=== PATIENT | male | born 1945 | race Caucasian/White ===

== ENCOUNTER 2018-10-12 15:50 | Inpatient (IN) | payer MEDICARE ==
[2018-10-12] MEDS ORDERED: fentaNYL (PF) 50 MCG/ML 2 ML AMP IV STA ×2 (16:23→16:50)
--- NOTE | 2018-10-12 16:28 | ED ---
Fall HPI - General Chief Complaint: Fall Stated Complaint: Fall Time Seen by Provider: 10/12/18 16:00 Source: patient, family, EMS, RN notes reviewed Mode of arrival: EMS - History of Present Illness Initial Comments: This is a 72-year-old male history of thyroid disease and arthritis and diabetes who apparently was leaning on a table just prior to admission and his garage when he gave out he fell landing on his right hip. He complains of pain to the right anterior hip and groin area especially tries to move his legs states is 10/10 in severity when he tries moving this almost 10 at rest. He does have a fentanyl patch 25 g he wears initially did declined pain medication. He was placed in a cervical collar and brought in by EMS. He denies any head neck or back pain. He states the pain in his right groin is sharp and achy. No loss of function to his upper or lower extremities reported. No other injuries reported. MD Complaint: fall - Related Data Home Medications Medication Instructions Recorded Confirmed Aspirin 81 mg PO DAILY 05/31/15 10/12/18 Enalapril [Vasotec] 20 mg PO BID 05/31/15 10/12/18 Ergocalciferol [Vitamin D2 50,000 unit PO SA 05/31/15 10/12/18 (DRISDOL)] Fluticasone Nasal [place] [Flonase 2 spray EA NOSTRIL 05/31/15 10/12/18 Nasal [place]] Levothyroxine Sodium [Synthroid] 137 mcg PO QAM 05/31/15 10/12/18 Magnesium 500 mg PO DAILY 05/31/15 10/12/18 Niacin 500 mg PO DAILY 05/31/15 10/12/18 Omeprazole [PriLOSEC] 20 mg PO BID 05/31/15 10/12/18 Travoprost [Travatan Z 0.004%] 1 drop RIGHT EYE 05/31/15 10/12/18 metFORMIN HCL 1,000 mg PO W/SUPPER 05/31/15 10/12/18 metFORMIN HCL 500 mg PO QAM 05/31/15 10/12/18 Loratadine [Claritin] 10 mg PO DAILY 06/07/15 10/12/18 Acetaminophen [Tylenol Extra 1,000 mg PO 10/12/18 10/12/18 Strength] Albuterol Inhaler [Ventolin Hfa 2 puff INHALATION RT-Q4H PRN 10/12/18 10/12/18 Inhaler] Diclofenac Sodium [Diclofenac 100 mg PO DAILY 10/12/18 10/12/18 Sodium ER] Insulin Aspart [NovoLOG Flexpen] 0 units SQ QID 10/12/18 10/12/18 Insulin NPH Human Isophane 40 unit SQ HS 10/12/18 10/12/18 [NovoLIN N] Sertraline [Zoloft] 100 mg PO DAILY 10/12/18 10/12/18 fentaNYL 25MCG/HR PATCH [Duragesic 25 mcg TRANSDERM Q72H 10/12/18 10/12/18 25MCG/HR] Allergies Allergy/AdvReac Type Severity Reaction Status Date / Time [id number]-Pqn Reductase Allergy Abdominal Verified 10/12/18 17:08 Inhibitor Pain Sulfa (Sulfonamide Allergy Unknown Verified 10/12/18 17:08 Antibiotics) Review of Systems ROS Statement: Those systems with pertinent positive or pertinent negative responses have been documented in the HPI. ROS Other: All systems not noted in ROS Statement are negative. Past Medical History Past Medical History: Diabetes Mellitus, GERD/Reflux, Hyperlipidemia, Hypertension, Thyroid Disorder Additional Past Medical History / Comment(s): Cholelithiasis; Kidney , GLAUCOMA RT EYE, START OF P[place]INSONS,DIFFUSE IDIOPATHIC SKELETAL PANCREATITIS,HYPERTOSIS( DISH), PT STATED APPETITE DOWN SINCE JANUARY HAS LOST 30 POUNDS. History of Any Multi-Drug Resistant Organisms: None Reported Additional Past Surgical History / Comment(s): 9-101-5 LAP CHOLEY Cataract surgery Past Anesthesia/Blood Transfusion Reactions: No Reported Reaction Additional Past Anesthesia/Blood Transfusion Reaction / Comment(s): HAS NEVER HAD GENERAL ANESTHESIA. Past Psychological History: No Psychological Hx Reported Smoking Status: Former smoker - Past Family History Father Family Medical History: COPD Additional Family Medical History / Comment(s): EMPHYSEMA Mother Family Medical History: Rheumatoid Arthritis (RA) General Exam - General Exam Comments Initial Comments: This is a well-developed well-nourished awake alert oriented 3 male demonstrates a Jason Coma Scale of 15 Limitations: no limitations General appearance: alert, anxious Head exam: Present: atraumatic, normocephalic, normal inspection Eye exam: Present: normal appearance, PERRL, EOMI. Absent: scleral icterus, conjunctival injection, periorbital swelling ENT exam: Present: normal exam, mucous membranes moist Neck exam: Present: normal inspection, full ROM (Cervical collar was in place. Did remove after clinical examination demonstrating no tenderness palpation no step-off or crepitation). Absent: tenderness, meningismus, lymphadenopathy Respiratory exam: Present: normal lung sounds bilaterally. Absent: respiratory distress, wheezes, rales, rhonchi, stridor Cardiovascular Exam: Present: regular rate, normal rhythm, normal heart sounds. Absent: systolic murmur, diastolic murmur, rubs, gallop, clicks GI/Abdominal exam: Present: soft, normal bowel sounds. Absent: distended, tenderness, guarding, rebound, rigid exam: Present: normal inspection, circumcision Extremities exam: Present: normal inspection, tenderness (Tenderness palpation over the anterior right pelvis and hip region. No step-off or crepitation. No discoloration. No shortening or rotation lower extremities.), normal capillary refill. Absent: full ROM, pedal edema, joint swelling, calf tenderness Back exam: Present: normal inspection Neurological exam: Present: alert, oriented X3, CN II-XII intact Psychiatric exam: Present: normal affect, normal mood Skin exam: Present: warm, dry, intact, normal color. Absent: rash Course Vital Signs 10/12/18 15:52 Temperature 97.5 F L Pulse Rate 64 Respiratory 18 Rate Blood Pressure 185/89 O2 Sat by Pulse 99 Oximetry - Reevaluation(s) Reevaluation #1: 10/12/18 18:34 Patient does have DISH. Medical Decision Making - Medical Decision Making I did discuss the case with the family members and patient on several occasions they've requested orthopedic Associates. I did discuss the case with Dr. Reyes who did refer the case to Dr. Lowery. Dr. Lowery full be the admitting physician. - Radiology Data Radiology results: report reviewed (I did review the imaging and report is evidence of a surgical neck fracture.), image reviewed Disposition Clinical Impression: Fall, Hip fracture, right Disposition: ADMITTED IP TO THIS [facility] Condition: Stable Referrals: Lloyd Romano MD [Primary Care Provider] - 1-2 days
--- NOTE | 2018-10-12 17:01 | XR ---
EXAMINATION TYPE: XR Hip RT and AP Pelvis DATE OF EXAM: 10/12/2018 COMPARISON: NONE HISTORY: Hip pain TECHNIQUE: A single AP view of the pelvis is obtained. Two views of the right hip are obtained. FINDINGS: There is slightly impacted fracture of the right femoral neck. There is no dislocation. The pelvic ring is intact. There is moderate osteoarthritis in the left hip joint. Sacroiliac joints are intact. IMPRESSION: Acute or subacute right femoral neck fracture.
[2018-10-12] MEDS ORDERED: NALOXONE 0.4 MG/ML 1 ML VIAL IV PRN (18:35)
[2018-10-12] MEDS ORDERED: ONDANSETRON 4 MG/2 ML VIAL IVP PRN (18:35)
[2018-10-12] MEDS: HYDROmorphone 1 MG/ML 1 ML SYRINGE IVP PRN ×2 (18:49→21:46)
[2018-10-12] MEDS: SODIUM CHLORIDE 0.9% 1,000 ML IV SCH (18:52)
--- NOTE | 2018-10-12 19:13 | XR ---
EXAMINATION TYPE: XR chest 1V DATE OF EXAM: 10/12/2018 COMPARISON: NONE HISTORY: Preop TECHNIQUE: Single frontal view of the chest is obtained. FINDINGS: There is no heart failure nor confluent pneumonic infiltrate. Costophrenic angles are juan m r. Bony thorax is intact. IMPRESSION: No active cardiopulmonary disease. Normal heart.
[2018-10-12 19:18] LABS: Basophils # (A) 0.1 k/uL (0-0.2); Basophils % (A) 1 %; Eosinophils # (A) 0.2 k/uL (0-0.7); Eosinophils % (A) 2 %; HCT 41.4 % (39.0-53.0); HGB 13.4 gm/dL (13.0-17.5); Lymphocytes # (A) 0.9 k/uL (1.0-4.8); Lymphocytes % (A) 12 %; MCH 28.6 pg (25.0-35.0); MCHC 32.4 g/dL (31.0-37.0); MCV 88.4 fL (80.0-100.0); Mean Platelet Volume 6.6; Monocytes # (A) 0.4 k/uL (0-1.0); Monocytes % (A) 5 %; Neutrophils # (A) 6.1 k/uL (1.3-7.7); Neutrophils % (A) 79 %; Platelet Count 182 k/uL (150-450); RBC 4.68 m/uL (4.30-5.90); RDW 13.4 % (11.5-15.5); WBC 7.7 k/uL (3.8-10.6)
[2018-10-12 19:19] LABS: ALT 27 U/L (21-72); AST 26 U/L (17-59); Albumin 3.9 g/dL (3.5-5.0); Alkaline Phosphatase 98 U/L (38-126); Anion Gap 7 mmol/L; Blood Urea Nitrogen 22 mg/dL (9-20); Calcium 9.3 mg/dL (8.4-10.2); Carbon Dioxide 22 mmol/L (22-30); Chloride 107 mmol/L (98-107); Glucose 185 mg/dL (74-99); Magnesium 2.1 mg/dL (1.6-2.3); Partial Thromboplastin Time 24.5 sec (22.0-30.0); Potassium 5.1 mmol/L (3.5-5.1); Prothrombin Time 10.9 sec (9.0-12.0); Sodium 136 mmol/L (137-145); Total Bilirubin 0.5 mg/dL (0.2-1.3); Total Protein 6.8 g/dL (6.3-8.2)
[2018-10-12 19:24] LABS: Creatine Kinase 103 U/L (55-170)
[2018-10-12 19:36] LABS: Creatine Kinase MB 1.6 ng/mL (0.0-2.4); Troponin I <0.012 ng/mL (0.000-0.034)
[2018-10-12 20:48] LABS: Appearance,Urine Clear (Clear); Bilirubin,Urine Negative (Negative); Blood,Urine Negative (Negative); Color,Urine Yellow; Glucose,Urine (UA) 2+ (Negative); Ketones,Urine Negative (Negative); Leukocyte Esterase,Urine Negative (Negative); Nitrite,Urine Negative (Negative); Protein,Urine Negative (Negative); Urobilinogen,Urine <2.0 mg/dL (<2.0)
[2018-10-12 20:58] LABS: Glucose,Whole Blood 152 mg/dL (75-99)
[2018-10-12] MEDS: LATANOPROST 0.005% OPHTH DROPS 2.5 ML BTL RIGHT EYE SCH (21:46)
[2018-10-12] MEDS: PANTOPRAZOLE 40 MG TABLET PO SCH (21:46)
[2018-10-12] MEDS: FLUTICASONE 50MCG/SPRAY NASAL 16GM EA NOSTRIL SCH (21:46)
[2018-10-12] MEDS ORDERED: ALBUTEROL NEBULIZED 2.5 MG/3 ML INHALATION PRN (22:36)
--- NOTE | 2018-10-12 23:35 | CONS ---
CONSULTATION DATE OF CONSULTATION: 10/12/2018 REASON FOR CONSULTATION: Medical management requested by Dr. Lowery. CONSULTATIONS: This is a very pleasant 73-year-old patient who follows with Dr. Lloyd Romano. Chronic stable medical conditions include hypothyroid, diabetes, GERD, hyperlipidemia, hypertension, early Parkinson's and DISH. The patient was working in the garage leaning over when he fell over injuring his right hip. The patient now has a fracture. The patient has a fracture of the right femoral neck. The patient denies any prior cardiac history. The patient has a fair exercise tolerance, though walks a bit slowly because of arthritis, can easily do a block. No chest pain or short of breath. The patient a while ago had a negative stress test, but the patient denies any cardiac symptoms. The patient's is at the bedside. REVIEW OF SYSTEMS: CONSTITUTIONAL: None. HEENT: None. RESPIRATORY: None. CARDIOVASCULAR: None. GASTROINTESTINAL: Heartburn. GENITOURINARY: None. MUSCULOSKELETAL: Arthritic pain in the joints and the right hip. DERMATOLOGICAL, HEMATOLOGIC, LYMPHATIC: none. PSYCHIATRY none. NEUROLOGICAL: Some slowness from early Parkinson's. Seen by Dr. Garvin. PAST MEDICAL HISTORY: Diabetes mellitus type 2, GERD, hyperlipidemia, hypertension, hypothyroid, cholelithiasis, glaucoma right eye, early Parkinson's, diffuse idiopathic skeletal hyperostosis. PAST SURGICAL HISTORY: Cholecystectomy, cataract surgery, rotator cuff repair, nose surgery from fracture. SOCIAL HISTORY: . No smoking. No alcohol. 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 FAMILY HISTORY: COPD. HOME MEDICATIONS: 1. Metformin 1000 mg with supper. 2. Travatan Z 0.004% 1 drop to right eye q.h.s. 3. Novolin N 40 units subcu q.h.s. 4. Flonase 2 sprays each nostril q.h.s. 5. Tylenol Extra Strength 1000 mg p.o. q.h.s. 6. Ventolin HFA 2 puffs q.4 p.r.n. 7. Insulin NovoLog q.i.d. 8. Duragesic patch 25 every 72 hours. 9. Vitamin D2 87636 units on Friday. 10.Diclofenac sodium 100 mg p.o. daily. 11.Magnesium 5 mg p.o. daily. 12.Prilosec 20 mg b.i.d. 13.Metformin 500 mg p.o. daily. 14.Zoloft 100 mg p.o. daily. 15.Synthroid 137 mcg daily. 16.Niacin 500 mg p.o. daily. 17.Claritin 10 mg p.o. daily. 18.Vasotec 20 mg b.i.d. 19.Aspirin 81 mg p.o. daily. ALLERGIES: TO STATINS AND SULFA. PHYSICAL EXAMINATION: VITAL SIGNS: Temperature 97.5, pulse 54, respiratory 18, blood pressure 185/89, repeat 160/76, pulse ox 99% on room air. GENERAL APPEARANCE: Average build, lying in bed, awake. EYES: Pupils equal. Conjunctive normal. Wearing glasses. HEENT external appearance of nose and ears normal. Oral cavity normal. NECK: JVD not raised. Mass not palpable. RESPIRATORY: Effort normal. LUNGS: Fair entry. CARDIOVASCULAR: First and second sounds normal. No edema. ABDOMEN: Soft, nontender. Liver and spleen not palpable. LYMPHATICS: No lymph nodes palpable in the neck and axilla. PSYCHIATRY: Alert and oriented x3. Mood and affect normal. NEUROLOGICAL: Pupils equal. Cranial nerves grossly intact. Power and sensation grossly intact. MUSCULOSKELETAL: Limited range of motion of the right hip. Evidence of OA especially in the hands. INVESTIGATIONS: White count 7.7, hemoglobin 13.4, potassium 5.1, BUN 22, creatinine 0.94. Accu-Cheks: Sodium 152. UA showing glucose 2+. EKG tracing personally reviewed by me shows normal sinus rhythm. Chest x-ray film personally reviewed by me shows some cardiomegaly. Questionable. No obvious infiltrates. Report also reviewed as per the radiologist. Right hip x-ray shows a femur fracture. ASSESSMENT: 1. Right femur neck fracture secondary to a mechanical fall. 2. Hypothyroidism. 3. Primary osteoarthritis multiple joints. 4. Diabetes mellitus type 2, chronically on insulin. 5. Gastroesophageal reflux disease. 6. Hyperlipidemia. 7. Essential hypertension. 8. 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 9. Cardiovascular risk assessment: The patient has no cardiac symptoms. Has fair exercise tolerance. This is a relatively low blood loss surgery. Hence, the patient's has mild cardiovascular risk of surgery, to proceed with the same with no contraindications. PLAN: Home medications are resumed. We will hold off patient's Novolin-N and rather use the Levemir, give 20 units to sliding scale. The patient is on subcu heparin for DVT prophylaxis. Other medications are resumed. Care was discussed with the patient and . Questions were answered. Thank you, Dr. Lowery. Copy to Dr. Romano. BARB / MARILYNN: [id number] /
[2018-10-13 00:04] LABS: Glucose,Whole Blood 165 mg/dL (75-99)
[2018-10-13] MEDS: INSULIN ASPART 100 UNIT/ML 1 ML 10 ML VIAL SQ SCH ×5 (00:24→22:55)
[2018-10-13] MEDS: HYDROmorphone 1 MG/ML 1 ML SYRINGE IVP PRN ×4 (00:29→11:29)
[2018-10-13] MEDS: INSULIN DETEMIR 100 UNIT/ML 10 ML VIAL SQ SCH ×2 (00:30→21:22)
[2018-10-13] MEDS: HEPARIN SODIUM,PORCINE 5,000 UNIT/ML 1 ML VIAL SQ SCH ×3 (00:31→22:56)
[2018-10-13] MEDS: LISINOPRIL 20 MG TAB PO SCH ×3 (00:31→21:22)
[2018-10-13 03:35] LABS: Glucose,Whole Blood 153 mg/dL (75-99)
[2018-10-13] MEDS: LEVOTHYROXINE 137 MCG TAB PO SCH (06:42)
[2018-10-13 07:30] LABS: Glucose,Whole Blood 170 mg/dL (75-99)
[2018-10-13] MEDS: metFORMIN 500 MG TAB PO SCH (09:16)
[2018-10-13] MEDS: MAGNESIUM OXIDE 400 MG TAB PO SCH (09:16)
[2018-10-13] MEDS: PANTOPRAZOLE 40 MG TABLET PO SCH ×2 (09:16→21:22)
[2018-10-13] MEDS: SERTRALINE 100 MG TAB PO SCH (09:17)
[2018-10-13] MEDS: LORATADINE 10 MG TAB PO SCH (09:17)
[2018-10-13] MEDS: NIACIN TR 500 MG CAPSULE.ER PO SCH (09:17)
--- NOTE | 2018-10-13 11:31 | P.HPOR ---
History of Present Illness H&P Date: 10/13/18 This is a 73 year-old male who presented to the emergency room via EMS after a fall on 10/12/2018. X-rays done in the emergency room show right femoral neck fracture. Patient states that he was working in his garage when he lost his balance and fell. Patient has a past medical history for DISH, diabetes, GERD, hypertension, hyperlipidemia, hypothyroidism, and early parkinson's. Patient denies any fever/chills, numbness, weakness, tingling, abdominal pain, shortness of breath or chest pain. Review of Systems See HPI. Past Medical History Past Medical History: Diabetes Mellitus, GERD/Reflux, Hyperlipidemia, Hypertension, Thyroid Disorder Additional Past Medical History / Comment(s): Cholelithiasis; Kidney , GLAUCOMA RT EYE, START OF [place]S,DIFFUSE IDIOPATHIC SKELETAL PANCREATITIS,HYPERTOSIS( DISH), PT STATED APPETITE DOWN SINCE JANUARY HAS LOST 30 POUNDS. History of Any Multi-Drug Resistant Organisms: None Reported Past Surgical History: Cholecystectomy Additional Past Surgical History / Comment(s): LAP CHOLEY Cataract surgery rotator cuff repair. nose fx with surgery Past Anesthesia/Blood Transfusion Reactions: No Reported Reaction Additional Past Anesthesia/Blood Transfusion Reaction / Comment(s): HAS NEVER HAD GENERAL ANESTHESIA. Past Psychological History: No Psychological Hx Reported Additional Psychological History / Comment(s): PT LIVES WITH HIS , IS INDEPENDANT-NO OUTSIDES SERVICES. Smoking Status: Former smoker Past Alcohol Use History: None Reported Past Drug Use History: None Reported - Past Family History Father Family Medical History: COPD Additional Family Medical History / Comment(s): EMPHYSEMA Mother Family Medical History: Rheumatoid Arthritis (RA) Medications and Allergies Home Medications Medication Instructions Recorded Confirmed Type Aspirin 81 mg PO DAILY 05/31/15 10/12/18 History Enalapril [Vasotec] 20 mg PO BID 05/31/15 10/12/18 History Ergocalciferol [Vitamin D2 50,000 unit PO SA 05/31/15 10/12/18 History (DRISDOL)] Fluticasone Nasal [place] [Flonase 2 spray EA NOSTRIL HS 05/31/15 10/12/18 History Nasal [place]] Levothyroxine Sodium [Synthroid] 137 mcg PO QAM 05/31/15 10/12/18 History Magnesium 500 mg PO DAILY 05/31/15 10/12/18 History Niacin 500 mg PO DAILY 05/31/15 10/12/18 History Omeprazole [PriLOSEC] 20 mg PO BID 05/31/15 10/12/18 History Travoprost [Travatan Z 0.004%] 1 drop RIGHT EYE HS 05/31/15 10/12/18 History metFORMIN HCL 1,000 mg PO W/SUPPER 05/31/15 10/12/18 History metFORMIN HCL 500 mg PO QAM 05/31/15 10/12/18 History Loratadine [Claritin] 10 mg PO DAILY 06/07/15 10/12/18 History Acetaminophen [Tylenol Extra 1,000 mg PO HS 10/12/18 10/12/18 History Strength] Albuterol Inhaler [Ventolin Hfa 2 puff INHALATION RT-Q4H PRN 10/12/18 10/12/18 History Inhaler] Diclofenac Sodium [Diclofenac 100 mg PO DAILY 10/12/18 10/12/18 History Sodium ER] Insulin Aspart [NovoLOG Flexpen] 0 units SQ QID 10/12/18 10/12/18 History Insulin NPH Human Isophane 40 unit SQ HS 10/12/18 10/12/18 History [NovoLIN N] Sertraline [Zoloft] 100 mg PO DAILY 10/12/18 10/12/18 History fentaNYL 25MCG/HR PATCH [Duragesic 25 mcg TRANSDERM Q72H 10/12/18 10/12/18 History 25MCG/HR] Allergies Allergy/AdvReac Type Severity Reaction Status Date / Time Lxmjplr-Dvq-Udu Reductase Allergy Abdominal Verified 10/12/18 17:08 Inhibitor Pain Sulfa (Sulfonamide Allergy Unknown Verified 10/12/18 17:08 Antibiotics) Physical Examination On exam patient is resting comfortably in bed in no acute distress. Patient is alert and oriented 3. The right lower extremity is mildly shortened and external rotated. Patient has good range of motion of the right foot and ankle. Sensation is intact. Right lower extremity is warm and well perfused. Neurovascular status and circulatory status are intact. Exams of the head, neck , bilateral upper extremities and left lower extremity are within normal limits. Results X-rays of the right hip and pelvis show a femoral neck fracture and moderate to severe osteoarthritic changes of the right hip joint. - Labs Labs: Abnormal Lab Results - Last 24 Hours (Table) 10/12/18 10/12/18 10/12/18 Range/Units 18:44 18:44 20:26 Lymphocytes # 0.9 L (1.0-4.8) k/uL Sodium 136 L (137-145) mmol/L BUN 22 H (9-20) mg/dL Glucose 185 H (74-99) mg/dL POC Glucose (mg/dL) (75-99) mg/dL Urine Glucose (UA) 2+ H (Negative) 10/12/18 10/13/18 10/13/18 Range/Units 20:51 00:03 03:34 Lymphocytes # (1.0-4.8) k/uL Sodium (137-145) mmol/L BUN (9-20) mg/dL Glucose (74-99) mg/dL POC Glucose (mg/dL) 152 H 165 H 153 H (75-99) mg/dL Urine Glucose (UA) (Negative) H & H 10/12/18 Range/Units 18:44 Hgb 13.4 (13.0-17.5) gm/dL Hct 41.4 (39.0-53.0) % Coagulation 10/12/18 Range/Units 18:44 INR 1.0 (<1.2) Result Diagrams: 10/12/18 18:44 10/12/18 18:44 Assessment and Plan Assessment: Hypothyroidism Osteoarthritis Type 2 diabetes mellitus GERD Hyperlipidemia Hypertension Early Parkinson's DISH (1) Fall Current Visit: Yes Status: Acute Code(s): W19.XXXA - UNSPECIFIED FALL, INITIAL ENCOUNTER SNOMED Code(s): 1420561 (2) Hip fracture, right Current Visit: Yes Status: Acute Code(s): S72.001A - FRACTURE OF UNSP PART OF NECK OF RIGHT FEMUR, INIT SNOMED Code(s): 988755085 (3) Osteoarthritis of right hip Current Visit: Yes Status: Acute Code(s): M16.11 - UNILATERAL PRIMARY OSTEOARTHRITIS, RIGHT HIP SNOMED Code(s): 396183186314840 Plan: 1. NPO 2. Non-weightbearing to the right lower extremity. 3. Rest and ice the right leg. 4. Continue pain control. 5. Appreciate input from medicine. 6. Direct anterior approach right total hip arthroplasty is scheduled for today pending medical clearance and patient consent.
[2018-10-13 12:30] LABS: Glucose,Whole Blood 174 mg/dL (75-99)
[2018-10-13] MEDS: HYDROmorphone 0.5 MG/0.5 ML SYRINGE IVP PRN ×2 (14:01→22:35)
[2018-10-13 15:56] LABS: Glucose,Whole Blood 150 mg/dL (75-99)
[2018-10-13] MEDS ORDERED: LACTATED RINGERS 1,000 ML IV ONE ×2 (16:20→18:41)
[2018-10-13] MEDS ORDERED: HYDROmorphone 1 MG/ML 1 ML SYRINGE IVP ONE (16:45)
[2018-10-13] MEDS ORDERED: DIAZEPAM 5 MG TAB PO PRN (17:33)
[2018-10-13] MEDS ORDERED: MAGNESIUM HYDROXIDE 2,400 MG/10 ML CUP PO PRN (17:33)
[2018-10-13] MEDS ORDERED: NALOXONE 0.4 MG/ML 1 ML VIAL IV PRN (17:33)
[2018-10-13] MEDS ORDERED: HYDROcodone/APAP 5-325MG 1 EACH TAB PO PRN (17:33)
[2018-10-13] MEDS ORDERED: ONDANSETRON 4 MG/2 ML VIAL IVP PRN (17:33)
[2018-10-13] MEDS ORDERED: hydrOXYzine PAMOATE 25 MG CAP PO PRN (17:33)
[2018-10-13] MEDS ORDERED: HYDROmorphone 0.5 MG/0.5 ML SYRINGE IVP PRN ×3 (17:33)
[2018-10-13] MEDS ORDERED: LACTATED RINGERS 1,000 ML BAG IV ONE (17:36)
[2018-10-13] MEDS ORDERED: fentaNYL (PF) 50 MCG/ML 2 ML AMP ONE (17:36)
[2018-10-13] MEDS ORDERED: PHENYLEPHRINE-0.9% NACL SYG 1 MG/10 ML SYRINGE ONE (17:36)
[2018-10-13] MEDS ORDERED: PROPOFOL 10 MG/ML 20 ML VIAL IV ONE (17:36)
[2018-10-13] MEDS ORDERED: WATER FOR INJECTION, STERILE 10 ML VIAL IV ONE (17:36)
[2018-10-13] MEDS ORDERED: HYDROmorphone (PF) 1 MG/ML ONE (17:36)
[2018-10-13] MEDS ORDERED: HEPARIN SODIUM,PORCINE 10,000 UNIT/ML 1 ML VIAL ONE (17:36)
[2018-10-13] MEDS ORDERED: MIDAZOLAM 2 MG/2 ML VIAL ONE (17:36)
[2018-10-13] MEDS ORDERED: KETAMINE 10 MG/ML 20 ML VIAL ONE (17:36)
[2018-10-13] MEDS ORDERED: ePHEDrine SULFATE/0.9% NACL/PF 50 MG/5 ML SYRINGE IV ONE (17:36)
[2018-10-13] MEDS ORDERED: ceFAZolin 2,000 MG in DEXTROSE/WATER 1 50ML.BAG IVPB STA (17:38)
[2018-10-13] MEDS ORDERED: ceFAZolin IN SWFI 2 GM/20 ML SYRINGE IVP STA (17:41)
--- NOTE | 2018-10-13 18:00 | PN ---
PROGRESS NOTE DATE OF SERVICE: 10/13/2018 PRESENT COMPLAINT: Right hip fracture. INTERVAL HISTORY: This patient with a fall, presented with right femoral neck fracture. Some pain is present. I saw this patient this afternoon, pending surgery. No chest pain or short of breath. Breathing is stable. REVIEW OF SYSTEMS: Done for constitutional, cardiovascular, GI, pulmonary, musculoskeletal and relevant findings as above. CURRENT MEDICATIONS: Reviewed. PHYSICAL EXAMINATION: VITAL SIGNS: Temperature 96.2, pulse 59, respirations 16, blood pressure 146/69, pulse ox 96% on room air. GENERAL APPEARANCE: Lying in bed, awake. EYES: Pupils are equal. Conjunctivae normal. NECK: JVD not raised. Mass not palpable. RESPIRATORY: Effort. LUNGS are clear. CARDIOVASCULAR: 1st and 2nd sounds normal. No edema. ABDOMEN: Soft. Nontender. Liver and spleen not palpable. PSYCHIATRY: Alert and oriented x3. Mood and affect normal. INVESTIGATIONS: Accu-Cheks are noted. ASSESSMENT: 1. Right femur neck fracture secondary to fall, pending surgery. 2. Hypothyroidism. 3. Primary osteoarthritis multiple joints. 4. Diabetes mellitus type 2, chronically on insulin. 5. Gastroesophageal reflux disease. 6. Hyperlipidemia. 7. Essential hypertension. 8. 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 PLAN: Continue current medication and treatment plan. Awaiting surgery. Accu-Cheks to be followed closely. Decent right now. She. MMODL / IJN: [id number] /
[2018-10-13] MEDS ORDERED: ceFAZolin 3,000 MG in SODIUM CHLORIDE 0.9% IRRIGATIO 3,000 ML IRRIGATION ONE (18:23)
--- NOTE | 2018-10-13 19:14 | P.OP ---
Date of Procedure: 10/13/18 Preoperative Diagnosis: Subcapital fracture right hip with significant degenerative arthritis right hip Postoperative Diagnosis: Subcapital fracture right hip with significant degenerative arthritis right hip Procedure(s) Performed: Right total hip arthroplasty with a direct anterior approach Implants: Meraz and nephew Polarstem size 7 standard Meraz [employer] Nephew R3, 3 hole acetabular shell, 54 mm Mer[employer]hew reflection 6.5 mm cancellus screw, 20 mm 2 Meraz [employer]hew R3, XLPE 20 acetabular liner Meraz [employer] Nephew Oxinium femoral head 36 m, +4 All components were press-fit. The articulation is Oxinium on polyethylene. 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 He sustained a subcapital fracture of his right hip and after discussing the surgical and nonsurgical treatment options with him at length I recommended a right total hip arthroplasty and informed consent was obtained. Operative Findings: The operative findings are consistent with a subcapital fracture of his right hip as well as significant degenerative arthritis of the right hip. Description of Procedure: Patient was seen and evaluated in the preoperative area, consent was reviewed, and the surgical site was marked with a skin marker. Patient was then brought to the operating room and given prophylactic antibiotics intravenously. 1 g of Tranexamic acid was also given. A spinal anesthetic was administered by the anesthesia department. The patient was then placed on the [place] table with the bony prominences well-padded. The hip area was then prepped and draped in usual sterile fashion. A universal timeout was then performed, which confirmed the patient's name, surgical site, ALLERGIES, and procedure being performed. Next the incision site was located at 1 cm distal and 1 cm lateral to the anterior superior iliac spine. The skin and subcutaneous tissues were sharply incised. Incision was carefully dissected down to the fascia overlying the tensor fascia jany muscle. This fascia was then incised in line with the incision. Next, using blunt finger dissection, the tensor fascia jany muscle was dissected off its investing fascia. The muscle was then carefully retracted laterally with a cobra retractor over the lateral neck of the femur. Next, the circumflex vessels were identified and cauterized using the AquaMantis device. The anterior hip capsule was then exposed. The capsule was then opened and an inverted T fashion. Cobra retractors were then placed intracapsularly. The proximal femur was then visualized. There is found to be a subcapital fracture of the right hip. The femoral neck was then osteotomized appropriate level above the lesser trochanter. Small amount of traction was placed with the [place] table. A small wedge of bone was then removed from the remaining femoral head. Next, using a corkscrew femoral head was easily removed from the acetabulum. On gross visual inspection, the femoral head had complete loss of articular cartilage in multiple periarticular osteophytes. Attention was then turned to the acetabulum. the acetabulum was exposed and any remaining labrum was excised. Sequential reaming of the acetabulum was performed using fluoroscopic guidance. When the appropriate size was reached, a trial was then placed. The position and fit of the trial was checked with fluoroscopy. The trial was then removed. Then, using fluoroscopic guidance, the final implant was impacted at 20 of anteversion and 40 of abduction, and fully seated in the acetabulum. 2 screws were then placed in the acetabulum. Again fluoroscopy was used to check position of the screws. Next, the liner was then impacted, with a 20 elevated liner located in the anterior superior quadrant. Component locking was confirmed. Attention was then directed to the femur. With the aid of the [place] table, the femur was externally rotated to approximately 130, extended, and abducted under the opposite leg. A side hook was then placed under the proximal femur, and the side hook elevator was used to elevate the proximal femur. Retractors were then placed. A capsular release was performed, as well as a release of the conjoined tendon, which afforded excellent visualization of the proximal femur. Next, a box osteotome was used to lateralize the proximal femur. A hand meat salter was then used to locate the femoral canal. Sequential broaching was then performed with appropriate size which afforded excellent fixation in the proximal femur. A trial was then placed with appropriate head and neck, and the hip was gently reduced with the aid of the [place] table. Fluoroscopy was then used to check position of the components, as well as to ensure equal leg lengths. The hip was then gently dislocated and the trials were then removed. Final implants were then impacted and the hip was again reduced. Final fluoroscopic x-rays confirmed that the components were in anatomic position, as well as equal leg lengths. The hip was also taken through range of motion, and found to be stable. The hip was then copiously irrigated with antibiotic solution with pulsatile lavage. The hip was then irrigated with Irrisept solution. The soft tissues were then injected with a ropivacaine solution, which consisted of 246.25 mg of ropivacaine, 0.5 mg of epinephrine, 30 mg of Toradol, 80 g of clonidine, and 48.45 mL of sterile water, for a total of 100 mL of fluid injected. A second dose of 1 g of Tranexamic acid was also given. the fascia was then closed with 2-0 strata fix suture. The subcutaneous tissue was closed with 3-0 Vicryl. The subcuticular tissue was closed with 3-0 strata fix suture. The skin was then closed with Dermabond glue and a sterile silver dressing. The patient was then transferred to the recovery room in stable condition. The physical laboratory assistant GENOVEVA Ziegler was required due to the complexity of surgery, and the need for skilled director medical surgical for positioning, draping, exposure, retraction, and closure of the wound.
[2018-10-13 19:53] LABS: Glucose,Whole Blood 149 mg/dL (75-99)
--- NOTE | 2018-10-13 19:57 | XR ---
PROCEDURE: XR Hip Limited RT - 1V DATE AND TIME: 10/13/2018 7:48 PM CLINICAL INDICATION: PHH; Status post hip surgery, assess surgical alignment TECHNIQUE: AP COMPARISON: None FINDINGS: Right THR is intact, with positioning and alignment. Postprocedural changes noted. No unexp ected radiographic findings. IMPRESSION: Postoperative right hip AP view
[2018-10-13] MEDS: SODIUM CHLORIDE 0.9% 1,000 ML IV SCH ×2 (20:26)
[2018-10-13 21:00] LABS: Glucose,Whole Blood 196 mg/dL (75-99)
[2018-10-13] MEDS: SENNOSIDES-DOCUSATE SODIUM 1 EACH TAB PO SCH (21:22)
[2018-10-13] MEDS: HYDROcodone/APAP 5-325MG 1 EACH TAB PO PRN (21:59)
--- NOTE | 2018-10-13 22:28 | FL ---
EXAMINATION TYPE: FL guidance operating room, XR Hip Limited RT DATE OF EXAM: 10/13/2018 CLINICAL HISTORY: Right hip replacement. TECHNIQUE: Fluoroscopy. Limited intraoperative views right hip. COMPARISON: None. FINDINGS: Fluoroscopic guidance was provided during hip replacement procedure performed by Dr. Leanne jenkins. A total of 44 seconds of fluoroscopic time was utilized during the procedure and 2 spot intraop erative images are acquired. Intraoperative images acquired show metallic hardware from hip replacement surgery satisfactory in po sition on frontal projection. IMPRESSION: As Above.
[2018-10-13 22:44] LABS: Appearance,Urine Clear (Clear); Bilirubin,Urine Negative (Negative); Blood,Urine Negative (Negative); Color,Urine Yellow; Glucose,Urine (UA) 3+ (Negative); Ketones,Urine 1+ (Negative); Leukocyte Esterase,Urine Negative (Negative); Nitrite,Urine Negative (Negative); Protein,Urine Negative (Negative); Specific Gravity,Urine 1.014 (1.001-1.035); Urobilinogen,Urine <2.0 mg/dL (<2.0)
[2018-10-13] MEDS: LATANOPROST 0.005% OPHTH DROPS 2.5 ML BTL RIGHT EYE SCH (22:55)
[2018-10-13] MEDS: FLUTICASONE 50MCG/SPRAY NASAL 16GM EA NOSTRIL SCH (22:55)
[2018-10-14] MEDS: ceFAZolin IN SWFI 2 GM/20 ML SYRINGE IVP SCH ×2 (02:40→10:36)
[2018-10-14] MEDS: HYDROmorphone 0.5 MG/0.5 ML SYRINGE IVP PRN (02:43)
[2018-10-14] MEDS: HYDROcodone/APAP 5-325MG 1 EACH TAB PO PRN ×2 (05:03→10:32)
[2018-10-14] MEDS: SODIUM CHLORIDE 0.9% 1,000 ML IV SCH ×2 (05:05→19:37)
[2018-10-14] MEDS: LEVOTHYROXINE 137 MCG TAB PO SCH (06:01)
[2018-10-14 07:10] LABS: Glucose,Whole Blood 270 mg/dL (75-99)
[2018-10-14] MEDS: INSULIN ASPART 100 UNIT/ML 1 ML 10 ML VIAL SQ SCH ×4 (07:37→20:32)
[2018-10-14] MEDS: RIVAROXABAN 10 MG TAB PO SCH (07:38)
[2018-10-14] MEDS: LORATADINE 10 MG TAB PO SCH (07:38)
[2018-10-14] MEDS: metFORMIN 500 MG TAB PO SCH (07:38)
[2018-10-14] MEDS: MAGNESIUM OXIDE 400 MG TAB PO SCH (07:38)
[2018-10-14] MEDS: PANTOPRAZOLE 40 MG TABLET PO SCH ×2 (07:38→20:32)
[2018-10-14] MEDS: SERTRALINE 100 MG TAB PO SCH (07:38)
[2018-10-14 08:21] LABS: Basophils % (A) 0 %; Eosinophils % (A) 0 %; HCT 38.2 % (39.0-53.0); HGB 12.7 gm/dL (13.0-17.5); Lymphocytes # (A) 1.1 k/uL (1.0-4.8); Lymphocytes % (A) 10 %; MCH 30.1 pg (25.0-35.0); MCHC 33.1 g/dL (31.0-37.0); MCV 90.8 fL (80.0-100.0); Mean Platelet Volume 7.4; Monocytes % (A) 9 %; Neutrophils # (A) 9.3 k/uL (1.3-7.7); Neutrophils % (A) 79 %; Platelet Count 214 k/uL (150-450); RBC 4.21 m/uL (4.30-5.90); RDW 13.5 % (11.5-15.5); WBC 11.7 k/uL (3.8-10.6)
--- NOTE | 2018-10-14 09:21 | P.PN ---
Subjective Progress Note Date: 10/14/18 This is a 73-year-old male who sustained a fracture to the right femoral neck after a fall. Patient is status post right total hip arthroplasty. This is postoperative day #1. Patient was seen and evaluated at bedside with Dr. Nate Lowery. The patient does report pain in the right hip today. Patient denies any fever/chills, numbness, weakness, tingling, abdominal pain, shortness of breath or chest pain. Objective - Vital Signs Vital signs: Vital Signs Temp 98 F 10/14/18 07:28 Pulse 68 10/14/18 07:28 Resp 16 10/14/18 07:28 BP 95/57 10/14/18 07:28 Pulse Ox 97 10/14/18 07:28 Intake & Output 10/13/18 10/14/18 10/14/18 18:59 06:59 18:59 Intake Total 1301 100 350 Output Total 600 800 Balance 701 -700 350 Intake: IV 1301 100 Oral 350 Output: Urine 600 450 Estimated Blood Loss 350 Other: Voiding Method Urinal Urinal # Voids 2 - Exam Vital signs are stable. Patient is in no acute distress and is alert and oriented 3. Calf is soft and nontender to palpation. Dressing is clean, dry, and intact. Patient has full foot and ankle motion without pain or difficulty. Neurovascular status and circulatory status are intact. - Labs CBC & Chem 7: 10/14/18 07:37 10/12/18 18:44 Labs: Abnormal Lab Results - Last 24 Hours (Table) 10/13/18 10/13/18 10/13/18 Range/Units 12:28 15:53 19:49 WBC (3.8-10.6) k/uL RBC (4.30-5.90) m/uL Hgb (13.0-17.5) gm/dL Hct (39.0-53.0) % Neutrophils # (1.3-7.7) k/uL POC Glucose (mg/dL) 174 H 150 H 149 H (75-99) mg/dL Urine Glucose (UA) (Negative) Urine Ketones (Negative) 10/13/18 10/13/18 10/14/18 Range/Units 20:59 22:30 06:59 WBC (3.8-10.6) k/uL RBC (4.30-5.90) m/uL Hgb (13.0-17.5) gm/dL Hct (39.0-53.0) % Neutrophils # (1.3-7.7) k/uL POC Glucose (mg/dL) 196 H 270 H (75-99) mg/dL Urine Glucose (UA) 3+ H (Negative) Urine Ketones 1+ H (Negative) 10/14/18 Range/Units 07:37 WBC 11.7 H (3.8-10.6) k/uL RBC 4.21 L (4.30-5.90) m/uL Hgb 12.7 L (13.0-17.5) gm/dL Hct 38.2 L (39.0-53.0) % Neutrophils # 9.3 H (1.3-7.7) k/uL POC Glucose (mg/dL) (75-99) mg/dL Urine Glucose (UA) (Negative) Urine Ketones (Negative) Assessment and Plan Assessment: Hypothyroidism Osteoarthritis Type 2 diabetes mellitus GERD Hyperlipidemia Hypertension Early Parkinson's DISH (1) Fall Current Visit: Yes Status: Acute Code(s): W19.XXXA - UNSPECIFIED FALL, INITIAL ENCOUNTER SNOMED Code(s): 9228360 (2) Hip fracture, right Current Visit: Yes Status: Acute Code(s): S72.001A - FRACTURE OF UNSP PART OF NECK OF RIGHT FEMUR, INIT SNOMED Code(s): 847067619 (3) Osteoarthritis of right hip Current Visit: Yes Status: Acute Code(s): M16.11 - UNILATERAL PRIMARY OSTEOARTHRITIS, RIGHT HIP SNOMED Code(s): 804301276169717 Plan: Continue routine postop care and pain control. Continue antocoagulation with Xarelto. Weightbearing as tolerated with a walker. Leave dressing in place for 10 days. Appreciated input from medicine. Anticipate discharge home or to rehab in the next 1-2 days.
[2018-10-14 09:28] LABS: Glucose,Whole Blood 292 mg/dL (75-99)
[2018-10-14] MEDS: LISINOPRIL 20 MG TAB PO SCH ×2 (09:48→20:32)
[2018-10-14] MEDS: NIACIN TR 500 MG CAPSULE.ER PO SCH (10:33)
[2018-10-14 11:38] LABS: Glucose,Whole Blood 255 mg/dL (75-99)
[2018-10-14] MEDS ORDERED: HYDROcodone/APAP 7.5-325MG 1 EACH TAB PO PRN (15:21)
[2018-10-14] MEDS: HYDROcodone/APAP 7.5-325MG 1 EACH TAB PO PRN ×2 (15:33→20:41)
[2018-10-14 17:19] LABS: Glucose,Whole Blood 185 mg/dL (75-99)
[2018-10-14 19:43] LABS: Glucose,Whole Blood 203 mg/dL (75-99)
[2018-10-14] MEDS: ceFAZolin 1,000 MG in DEXTROSE/WATER 1 50ML.BAG IVPB SCH (20:31)
[2018-10-14] MEDS: FLUTICASONE 50MCG/SPRAY NASAL 16GM EA NOSTRIL SCH (20:31)
[2018-10-14] MEDS: INSULIN DETEMIR 100 UNIT/ML 10 ML VIAL SQ SCH (20:32)
[2018-10-14] MEDS: SENNOSIDES-DOCUSATE SODIUM 1 EACH TAB PO SCH (20:32)
[2018-10-14] MEDS: LATANOPROST 0.005% OPHTH DROPS 2.5 ML BTL RIGHT EYE SCH (20:33)
[2018-10-14] MEDS ORDERED: INSULIN DETEMIR 100 UNIT/ML 10 ML VIAL SQ ONE (23:00)
--- NOTE | 2018-10-14 23:49 | PN ---
PROGRESS NOTE DATE OF SERVICE: 10/14/2018. PRESENT COMPLAINT: Right hip fracture. INTERVAL HISTORY: The patient with fall, presented with right femoral neck fracture, status post surgery. The patient did spike a fever yesterday evening. UA was negative. Blood cultures were sent. The patient did get his IV Ancef dose this evening. Patient did have a temperature of 100.7, and second set of blood cultures was sent off. I did put the patient on scheduled IV Ancef. The patient earlier today had near syncope while doing therapy, nearly passed out as he was put back in bed. He does feel tired and run down. Denies any urinary symptoms or respiratory symptoms. REVIEW OF SYSTEMS: Done for constitutional, cardiovascular, GI, pulmonary; relevant findings as above. CURRENT MEDICATIONS: Reviewed that include IV Ancef and Xarelto. PHYSICAL EXAMINATION: Temperature 98, pulse 71, respirations 16, blood pressure 105/61, pulse ox 92 percent on 3 L. GENERAL APPEARANCE: Lying in bed, tired-appearing. EYES: Pupils equal. Conjunctivae normal. NECK: JVD not raised. Mass not palpable. Respiratory effort normal. LUNGS: Clear. CARDIOVASCULAR: 1st and 2nd sounds normal. No edema. ABDOMEN: Soft, nontender. Liver and spleen not palpable. PSYCHIATRY: Alert and oriented x3. Mood and affect normal. INVESTIGATIONS: Accu-Cheks are noted. White count 11.7, hemoglobin 12.7, down from 13.4. Accu-Cheks are noted. ASSESSMENT: 1. Near-syncope from relative hypotension. 2. Right femoral neck fracture followed by right total hip arthroplasty. 3. Hypothyroidism. 4. Primary osteoarthritis multiple joints. 5. Diabetes mellitus type 2, chronically on insulin, uncontrolled, with hyperglycemia. 6. Gastroesophageal reflux disease. 7. Hyperlipidemia. 8. Essential hypertension, history of. 9. 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 PLAN: A set of blood cultures and repeat UA was ordered. The patient is put on scheduled IV Ancef. Will adjust patient's insulin dose. Hold off antihypertensive right now. The patient was given IV fluids, still running this same. Keep a close eye on the hemoglobin. Care was discussed with the patient. MMODL / IJN: [id number] /
[2018-10-15] MEDS: SODIUM CHLORIDE 0.9% 1,000 ML IV SCH ×3 (02:26→17:42)
[2018-10-15] MEDS: HYDROcodone/APAP 5-325MG 1 EACH TAB PO PRN ×3 (03:04→17:58)
[2018-10-15] MEDS: ceFAZolin 1,000 MG in DEXTROSE/WATER 1 50ML.BAG IVPB SCH ×3 (03:04→20:07)
[2018-10-15] MEDS: LEVOTHYROXINE 137 MCG TAB PO SCH (05:27)
[2018-10-15 07:23] LABS: Glucose,Whole Blood 171 mg/dL (75-99)
[2018-10-15 07:48] LABS: Basophils # (A) 0.1 k/uL (0-0.2); Basophils % (A) 1 %; Eosinophils # (A) 0.1 k/uL (0-0.7); Eosinophils % (A) 1 %; HCT 31.8 % (39.0-53.0); HGB 10.1 gm/dL (13.0-17.5); Lymphocytes # (A) 1.1 k/uL (1.0-4.8); Lymphocytes % (A) 14 %; MCH 28.6 pg (25.0-35.0); MCHC 31.6 g/dL (31.0-37.0); MCV 90.4 fL (80.0-100.0); Mean Platelet Volume 6.8; Monocytes # (A) 0.6 k/uL (0-1.0); Monocytes % (A) 8 %; Neutrophils # (A) 5.9 k/uL (1.3-7.7); Neutrophils % (A) 73 %; Platelet Count 171 k/uL (150-450); RBC 3.52 m/uL (4.30-5.90); RDW 13.2 % (11.5-15.5)
[2018-10-15] MEDS: INSULIN ASPART 100 UNIT/ML 1 ML 10 ML VIAL SQ SCH ×7 (07:56→21:07)
--- NOTE | 2018-10-15 08:42 | P.PN ---
Subjective Progress Note Date: 10/15/18 This is a 73-year-old male who sustained a fracture to the right femoral neck after a fall. Patient is status post right total hip arthroplasty. This is postoperative day #2. Patient is seen and evaluated at bedside. Patient states that his pain is well-controlled today, but he has not done any walking with physical therapy due to an episode of dizziness yesterday. Patient denies any fever/chills, numbness, weakness, tingling, abdominal pain, shortness of breath or chest pain. Objective - Vital Signs Vital signs: Vital Signs Temp 98.8 F 10/15/18 07:25 Pulse 67 10/15/18 07:25 Resp 16 10/15/18 07:25 BP 105/44 10/15/18 07:25 Pulse Ox 93 L 10/15/18 07:25 Intake & Output 10/14/18 10/15/18 10/15/18 18:59 06:59 18:59 Intake Total 830 Balance 830 Intake: Oral 830 Other: Voiding Method Urinal Urinal # Voids 1 - Exam Vital signs are stable. Patient is in no acute distress and is alert and oriented 3. Calf is soft and nontender to palpation. Dressing is clean, dry, and intact. Patient has full foot and ankle motion without pain or difficulty. Neurovascular status and circulatory status are intact. - Labs CBC & Chem 7: 10/15/18 06:54 10/12/18 18:44 Labs: Abnormal Lab Results - Last 24 Hours (Table) 10/14/18 10/14/18 10/14/18 Range/Units 09:26 11:37 17:17 RBC (4.30-5.90) m/uL Hgb (13.0-17.5) gm/dL Hct (39.0-53.0) % POC Glucose (mg/dL) 292 H 255 H 185 H (75-99) mg/dL 10/14/18 10/15/18 10/15/18 Range/Units 19:41 06:54 07:05 RBC 3.52 L (4.30-5.90) m/uL Hgb 10.1 L (13.0-17.5) gm/dL Hct 31.8 L (39.0-53.0) % POC Glucose (mg/dL) 203 H 171 H (75-99) mg/dL Microbiology - Last 24 Hours (Table) 10/13/18 23:01 Blood Culture - Preliminary Blood No Growth after 24 hours 10/13/18 22:49 Blood Culture - Preliminary Blood No Growth after 24 hours Assessment and Plan Assessment: Hypothyroidism Osteoarthritis Type 2 diabetes mellitus GERD Hyperlipidemia Hypertension Early Parkinson's DISH (1) Fall Current Visit: Yes Status: Acute Code(s): W19.XXXA - UNSPECIFIED FALL, INITIAL ENCOUNTER SNOMED Code(s): 4518596 (2) Hip fracture, right Current Visit: Yes Status: Acute Code(s): S72.001A - FRACTURE OF UNSP PART OF NECK OF RIGHT FEMUR, INIT SNOMED Code(s): 119721699 (3) Osteoarthritis of right hip Current Visit: Yes Status: Acute Code(s): M16.11 - UNILATERAL PRIMARY OSTEOARTHRITIS, RIGHT HIP SNOMED Code(s): 251936875796918 Plan: Continue routine postop care and pain control. Continue antocoagulation with Xarelto. Weightbearing as tolerated with a walker. Leave dressing in place for 10 days. Appreciate input from medicine. Physical therapy today. Anticipate discharge home or to rehab in the next 1-2 days.
[2018-10-15] MEDS: LISINOPRIL 20 MG TAB PO SCH ×2 (08:46→21:06)
[2018-10-15] MEDS: PANTOPRAZOLE 40 MG TABLET PO SCH ×2 (08:50→21:07)
[2018-10-15] MEDS: SERTRALINE 100 MG TAB PO SCH (08:50)
[2018-10-15] MEDS: MAGNESIUM OXIDE 400 MG TAB PO SCH (08:50)
[2018-10-15] MEDS: RIVAROXABAN 10 MG TAB PO SCH (08:50)
[2018-10-15] MEDS: metFORMIN 500 MG TAB PO SCH (08:50)
[2018-10-15] MEDS: NIACIN TR 500 MG CAPSULE.ER PO SCH (08:52)
[2018-10-15 12:05] LABS: Glucose,Whole Blood 191 mg/dL (75-99)
[2018-10-15 17:52] LABS: Glucose,Whole Blood 168 mg/dL (75-99)
[2018-10-15 20:16] LABS: Glucose,Whole Blood 143 mg/dL (75-99)
[2018-10-15] MEDS ORDERED: INSULIN DETEMIR 100 UNIT/ML 10 ML VIAL SQ SCH (21:00)
[2018-10-15] MEDS: LATANOPROST 0.005% OPHTH DROPS 2.5 ML BTL RIGHT EYE SCH (21:05)
[2018-10-15] MEDS: FLUTICASONE 50MCG/SPRAY NASAL 16GM EA NOSTRIL SCH (21:05)
[2018-10-15] MEDS: SENNOSIDES-DOCUSATE SODIUM 1 EACH TAB PO SCH (21:06)
[2018-10-15] MEDS ORDERED: INSULIN DETEMIR 100 UNIT/ML 10 ML VIAL SQ ONE (22:45)
--- NOTE | 2018-10-15 23:50 | PN ---
PROGRESS NOTE DATE OF SERVICE: 10/15/2018 PRESENTING COMPLAINT: Tired. INTERVAL HISTORY: This patient with fall, presented with right femoral neck fracture status post surgery. The patient is having low-grade fevers. Patient had no respiratory symptoms. No urinary symptoms. I did start the patient on IV Ancef yesterday. The patient feels a bit better. Appetite is still a bit down. Family is present. Did work with therapy today. REVIEW OF SYSTEMS: Done for constitutional, cardiovascular, GI, pulmonary; relevant findings as above. CURRENT MEDICATIONS: Reviewed that include IV Ancef and Xarelto. PHYSICAL EXAMINATION: VITAL SIGNS: Temperature yesterday last night 100.6, pulse 72, respirations 12, blood pressure 100/61, pulse ox 94 percent. GENERAL APPEARANCE: Sitting up in a chair. Less tired appearing. EYES: Pupils equal. Conjunctivae normal. NECK: JVD not raised. Mass not palpable. RESPIRATORY: Effort normal. LUNGS are clear. CARDIOVASCULAR: 1st and 2nd sounds normal. No edema. ABDOMEN: Soft, nontender. Liver and spleen not palpable. PSYCHIATRY: Alert and oriented times three. Mood and affect normal. MUSCULOSKELETAL: Some tenderness around the right incision site. I do not see any obvious evidence of cellulitis. INVESTIGATIONS: Accu-Cheks are noted. ASSESSMENT: 1. Near-syncope from relative hypotension. 2. Right femoral neck fracture followed by right hip arthroplasty. 3. Postop fever with patient having no respiratory or urinary symptoms. Incision appears to be healing well per Orthopedics. Empirically I have the patient on IV Ancef. The patient's fever could be reactive from the prosthesis itself. 4. Primary osteoarthritis multiple joints. 5. Diabetes mellitus type 2, chronically on insulin, uncontrolled with hyperglycemia. 6. Gastroesophageal reflux disease. 7. Hyperlipidemia. 8. Early Parkinson's disorder, not on medications. PLAN: Patient's blood cultures are coming back to be negative. Since the patient still having fever, we will keep the patient on IV Ancef. Await for cultures to come around. The patient is working with therapy. Repeat labs in the morning. We will increase the patient's dose of Levemir and Humalog. MMODL / IJN: [id number] /
[2018-10-16] MEDS: HYDROcodone/APAP 7.5-325MG 1 EACH TAB PO PRN ×4 (01:15→19:19)
[2018-10-16] MEDS: LEVOTHYROXINE 137 MCG TAB PO SCH (06:27)
[2018-10-16] MEDS: ceFAZolin 1,000 MG in DEXTROSE/WATER 1 50ML.BAG IVPB SCH ×3 (06:27→19:18)
[2018-10-16 07:12] LABS: Glucose,Whole Blood 135 mg/dL (75-99)
[2018-10-16 07:34] LABS: Basophils # (A) 0.1 k/uL (0-0.2); Basophils % (A) 1 %; Eosinophils # (A) 0.2 k/uL (0-0.7); Eosinophils % (A) 2 %; HCT 29.4 % (39.0-53.0); HGB 9.4 gm/dL (13.0-17.5); Lymphocytes # (A) 1.1 k/uL (1.0-4.8); Lymphocytes % (A) 14 %; MCH 28.7 pg (25.0-35.0); MCV 89.7 fL (80.0-100.0); Mean Platelet Volume 6.8; Monocytes # (A) 0.4 k/uL (0-1.0); Monocytes % (A) 6 %; Neutrophils # (A) 5.7 k/uL (1.3-7.7); Neutrophils % (A) 74 %; Platelet Count 180 k/uL (150-450); RBC 3.28 m/uL (4.30-5.90); WBC 7.6 k/uL (3.8-10.6)
--- NOTE | 2018-10-16 08:21 | P.DS ---
Providers Date of admission: 10/12/18 18:35 Expected date of discharge: 10/16/18 Attending physician: Nate Lowery Consults: 10/12/18 18:40 Consult Physician Urgent Consulting Provider: Olvin Mascorro Consult Reason/Comments: Medical clearance for total right hip replacement Do you want consulting provider notified?: Already Contacted Primary care physician: Lloyd Romano - Discharge Diagnosis(es) (1) Fall Current Visit: Yes Status: Acute (2) Hip fracture, right Current Visit: Yes Status: Acute (3) Osteoarthritis of right hip Current Visit: Yes Status: Acute Hospital Course: This is a 73-year-old male who sustained a subcapital fracture of the right femur after a fall at home on 10/12/2018. The patient presented for evaluation in the emergency room via EMS and was admitted for further management. After discussion and consideration patient elects to proceed with right total hip arthroplasty. The patient is seen preoperatively by Dr. Lowery and medically cleared for surgery by internal medicine. The patient is admitted on 10/12/2018 and a right total hip arthroplasty is performed on 10/13/2018. The procedures performed without complication or sequelae. The patient is doing well postoperatively. Labs and vital signs are stable on day of discharge. On day of discharge patient's hip incision is healing well. There is minimal erythema. There is no drainage noted at this time. There is minimal soft tissue swelling to the hip and thigh. Patient has full foot and ankle motion without difficulty or pain. Neurovascular status to the right lower extremity is intact. Patient is discharged home in good condition. Please see med rec for accurate list of home medications. Patient Condition at Discharge: Stable Plan - Discharge Summary Discharge Rx Participant: No New Discharge Prescriptions: New HYDROcodone/APAP 7.5-325MG [Dustin 7.5-325] 1 - 2 tab PO Q4-6H PRN #84 tab PRN Reason: Pain Rivaroxaban [Xarelto] 10 mg PO DAILY #32 tab Sennosides [Senokot] 1 tab PO BID #60 tablet No Action metFORMIN HCL 500 mg PO QAM metFORMIN HCL 1,000 mg PO W/SUPPER Niacin 500 mg PO DAILY Levothyroxine Sodium [Synthroid] 137 mcg PO QAM Enalapril [Vasotec] 20 mg PO BID Aspirin 81 mg PO DAILY Omeprazole [PriLOSEC] 20 mg PO BID Magnesium 500 mg PO DAILY Fluticasone Nasal [place] [Flonase Nasal [place]] 2 spray EA NOSTRIL HS Ergocalciferol [Vitamin D2 (DRISDOL)] 50,000 unit PO SA Travoprost [Travatan Z 0.004%] 1 drop RIGHT EYE HS Loratadine [Claritin] 10 mg PO DAILY Albuterol Inhaler [Ventolin Hfa Inhaler] 2 puff INHALATION RT-Q4H PRN PRN Reason: Shortness Of Breath Insulin Aspart [NovoLOG Flexpen] 0 units SQ QID Insulin NPH Human Isophane [NovoLIN N] 40 unit SQ HS fentaNYL 25MCG/HR PATCH [Duragesic 25MCG/HR] 25 mcg TRANSDERM Q72H Diclofenac Sodium [Diclofenac Sodium ER] 100 mg PO DAILY Acetaminophen [Tylenol Extra Strength] 1,000 mg PO HS Sertraline [Zoloft] 100 mg PO DAILY Discharge Medication List Aspirin 81 mg PO DAILY 05/31/15 [History] Enalapril [Vasotec] 20 mg PO BID 05/31/15 [History] Ergocalciferol [Vitamin D2 (DRISDOL)] 50,000 unit PO SA 05/31/15 [History] Fluticasone Nasal [place] [Flonase Nasal [place]] 2 spray EA NOSTRIL HS 05/31/15 [ History] Levothyroxine Sodium [Synthroid] 137 mcg PO QAM 05/31/15 [History] Magnesium 500 mg PO DAILY 05/31/15 [History] Niacin 500 mg PO DAILY 05/31/15 [History] Omeprazole [PriLOSEC] 20 mg PO BID 05/31/15 [History] Travoprost [Travatan Z 0.004%] 1 drop RIGHT EYE HS 05/31/15 [History] metFORMIN HCL 1,000 mg PO W/SUPPER 05/31/15 [History] metFORMIN HCL 500 mg PO QAM 05/31/15 [History] Loratadine [Claritin] 10 mg PO DAILY 06/07/15 [History] Acetaminophen [Tylenol Extra Strength] 1,000 mg PO HS 10/12/18 [History] Albuterol Inhaler [Ventolin Hfa Inhaler] 2 puff INHALATION RT-Q4H PRN 10/12/18 [ History] Diclofenac Sodium [Diclofenac Sodium ER] 100 mg PO DAILY 10/12/18 [History] Insulin Aspart [NovoLOG Flexpen] 0 units SQ QID 10/12/18 [History] Insulin NPH Human Isophane [NovoLIN N] 40 unit SQ HS 10/12/18 [History] Sertraline [Zoloft] 100 mg PO DAILY 10/12/18 [History] fentaNYL 25MCG/HR PATCH [Duragesic 25MCG/HR] 25 mcg TRANSDERM Q72H 10/12/18 [ History] HYDROcodone/APAP 7.5-325MG [Dustin 7.5-325] 1 - 2 tab PO Q4-6H PRN #84 tab [Rx] Rivaroxaban [Xarelto] 10 mg PO DAILY #32 tab 10/16/18 [Rx] Sennosides [Senokot] 1 tab PO BID #60 tablet 10/16/18 [Rx] Follow up Appointment(s)/Referral(s): [facility], [NON-STAFF] - Lloyd Romano MD [Primary Care Provider] - 1-2 days Nate Lowery DO [Doctor of Osteopathic Medicine] - 2 Weeks Activity/Diet/Wound Care/Special Instructions: Weightbearing as tolerated with walker. Leave dressing intact. Dressing may be removed by home care nurse in 10 days. May shower with dressing on. Please follow-up with [facility] in 2 weeks and call with any questions or concerns, . Discharge Disposition: HOME WITH HOME HEALTH SERVICES
[2018-10-16] MEDS: INSULIN ASPART 100 UNIT/ML 1 ML 10 ML VIAL SQ SCH ×7 (08:30→21:28)
[2018-10-16] MEDS: SODIUM CHLORIDE 0.9% 1,000 ML IV SCH ×3 (08:36→17:40)
[2018-10-16] MEDS: NIACIN TR 500 MG CAPSULE.ER PO SCH (08:36)
[2018-10-16] MEDS: SERTRALINE 100 MG TAB PO SCH (08:36)
[2018-10-16] MEDS: RIVAROXABAN 10 MG TAB PO SCH (08:36)
[2018-10-16] MEDS: LISINOPRIL 20 MG TAB PO SCH ×2 (08:36→21:30)
[2018-10-16] MEDS: MAGNESIUM OXIDE 400 MG TAB PO SCH (08:36)
[2018-10-16] MEDS: PANTOPRAZOLE 40 MG TABLET PO SCH ×2 (08:36→21:30)
[2018-10-16] MEDS: metFORMIN 500 MG TAB PO SCH (08:36)
[2018-10-16] MEDS ORDERED: HYDROmorphone 2 MG TAB PO PRN ×3 (11:07→11:08)
[2018-10-16 11:36] LABS: Glucose,Whole Blood 148 mg/dL (75-99)
[2018-10-16 17:00] LABS: Glucose,Whole Blood 158 mg/dL (75-99)
--- NOTE | 2018-10-16 17:21 | PN ---
PROGRESS NOTE DATE OF SERVICE: 10/16/2018 PRESENTING COMPLAINT: Tired. INTERVAL HISTORY: This patient presented with a right femoral neck fracture, status post surgery. Has had low-grade fevers. No respiratory symptoms. No urinary symptoms. Empirically had been on IV Ancef. Patient did lose some blood locally at the operative site felt to be possibly the reason for his low-grade fever. White count has remained normal. Feeling better. Did actually walk a bit today back and forth to the bathroom. REVIEW OF SYSTEMS: Done for constitutional, cardiovascular, GI, pulmonary; relevant findings as above. CURRENT MEDICATIONS: Reviewed. They include IV Ancef and Xarelto. PHYSICAL EXAMINATION: Temperature 98.5, pulse 76, respiration 17, blood pressure 136/68, pulse ox 92% on room air. GENERAL APPEARANCE: Lying in bed. Comfortable. EYES: Pupils equal. Conjunctivae pale. NECK: JVD not raised. Mass not palpable. RESPIRATORY: Effort normal. Lungs are clear. CARDIOVASCULAR: First and second sounds normal. No edema. ABDOMEN: Soft, non-tender. Liver and spleen not palpable. PSYCHIATRY: Alert and oriented x3. Mood and affect normal. MUSCULOSKELETAL: There is some bruising around the incision site, some tenderness. INVESTIGATIONS: Hemoglobin 9.4. ASSESSMENT: 1. Status post near-syncope from relative hypotension from blood loss anemia. 2. Right femoral neck fracture followed by right hip arthroplasty. 3. Postoperative fever, likely from bleeding around the surgical site. No clinical evidence of infection. 4. Primary osteoarthritis in multiple joints. 5. Diabetes mellitus, type 2, chronically on insulin, uncontrolled, with hyperglycemia. 6. Gastroesophageal reflux disease. 7. Hyperlipidemia. 8. 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 PLAN: The patient's blood cultures have remained negative. Will discontinue the IV Ancef after today. I do not see any evidence of infection. Care was discussed at length with the patient and . Patient to get about. The patient should be able to go home tomorrow. Discussed with the patient's . MMODL / IJN: [id number] /
[2018-10-16] MEDS: FERROUS SULFATE 325 MG TAB PO SCH ×2 (17:39→21:34)
[2018-10-16 20:19] LABS: Glucose,Whole Blood 167 mg/dL (75-99)
[2018-10-16] MEDS ORDERED: INSULIN DETEMIR 100 UNIT/ML 10 ML VIAL SQ SCH (21:00)
[2018-10-16] MEDS: FLUTICASONE 50MCG/SPRAY NASAL 16GM EA NOSTRIL SCH (21:29)
[2018-10-16] MEDS: SENNOSIDES-DOCUSATE SODIUM 1 EACH TAB PO SCH (21:30)
[2018-10-16] MEDS: LATANOPROST 0.005% OPHTH DROPS 2.5 ML BTL RIGHT EYE SCH (21:31)
[2018-10-17 00:31] VITALS: TEMP 98.7
[2018-10-17] MEDS: HYDROcodone/APAP 7.5-325MG 1 EACH TAB PO PRN ×2 (04:49→12:36)
[2018-10-17 07:07] LABS: Glucose,Whole Blood 104 mg/dL (75-99)
[2018-10-17 07:11] VITALS: BP 106/61; PULSE 65; RESP 20
[2018-10-17] MEDS: LEVOTHYROXINE 137 MCG TAB PO SCH (07:11)
[2018-10-17] MEDS: INSULIN ASPART 100 UNIT/ML 1 ML 10 ML VIAL SQ SCH ×4 (07:24→12:32)
[2018-10-17] MEDS: FERROUS SULFATE 325 MG TAB PO SCH (08:58)
[2018-10-17] MEDS: LISINOPRIL 20 MG TAB PO SCH (08:58)
[2018-10-17] MEDS: MAGNESIUM OXIDE 400 MG TAB PO SCH (08:58)
[2018-10-17] MEDS: SODIUM CHLORIDE 0.9% 1,000 ML IV SCH (08:59)
[2018-10-17] MEDS: metFORMIN 500 MG TAB PO SCH (08:59)
[2018-10-17] MEDS: PANTOPRAZOLE 40 MG TABLET PO SCH (08:59)
[2018-10-17] MEDS: RIVAROXABAN 10 MG TAB PO SCH (08:59)
[2018-10-17] MEDS: SERTRALINE 100 MG TAB PO SCH (08:59)
[2018-10-17] MEDS: NIACIN TR 500 MG CAPSULE.ER PO SCH (08:59)
--- NOTE | 2018-10-17 10:43 | P.PN ---
Progress Note - Text Progress Note Date: 10/17/18 The patient's discharge was held yesterday. He is ready for discharge today. He is weightbearing as tolerated with walker. Please see previous discharge summary.
[2018-10-17 12:22] LABS: Glucose,Whole Blood 159 mg/dL (75-99)
--- NOTE | 2018-10-19 00:11 | PN ---
PROGRESS NOTE DATE OF SERVICE: 10/17/2018 PRESENTING COMPLAINT: Doing well. INTERVAL HISTORY: This patient has right femoral neck fracture status post surgery, had a low-grade fever that was felt to be from local hematoma at the operative site. Infection workup is negative. Patient doing much better today, walking up and about, feeling really good, very keen to go home. No more dizzy. REVIEW OF SYSTEMS: Done for constitutional, cardiovascular, GI, pulmonary and relevant findings as above. CURRENT MEDICATIONS: Reviewed that include Xarelto. PHYSICAL EXAMINATION: VITAL SIGNS: Temperature 98.7, pulse 65, respiratory rate 20, blood pressure 106/61, pulse ox 96% on room air. GENERAL APPEARANCE: Sitting up on a chair, all dressed up, looking good, feeling good. EYES: Pupils equal. Conjunctivae normal. NECK: JVD not raised. Mass not palpable. RESPIRATORY: Effort normal. LUNGS are clear. CARDIOVASCULAR: First and second sounds. No edema. ABDOMEN: Soft, nontender. Liver and spleen not palpable. PSYCHIATRY: Alert and oriented x3. Mood and affect normal. INVESTIGATIONS: Accu-Cheks are noted. ASSESSMENT: 1. Status post near syncope from relative hypotension from blood loss anemia now recovered. 2. Right femoral neck fracture followed by right hip arthroplasty. 3. Postop fever likely from the bleeding around the surgical site. No evidence of infection. 4. Primary osteoarthritis multiple joints. 5. Diabetes mellitus type 2, chronically on insulin, uncontrolled with hyperglycemia. 6. Gastroesophageal reflux disease. 7. Hyperlipidemia. 8. 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 PLAN: Patient doing well. Has done really well. Care was discussed with the patient. Family at the bedside. The patient should follow with his family doctor. MMODL / IJN: [id number] /
== END 2018-10-17 17:07 | disposition home health service (06) | DRG 470 ==
LOC: EC 15:50 → 4MS4W 18:35 → 4SSUR 10-13 19:33
PROVIDERS: ADMIT Orthopaedic Surgery; ATTEND Orthopaedic Surgery
PROC: 30233N0 Transfusion of Autologous Red Blood Cells into Peripheral Vein, Percutaneous Approach (ICD-10-PCS; 2018-10-13)
PROC: 0SR906A Replacement of Right Hip Joint with Oxidized Zirconium on Polyethylene Synthetic Substitute, Uncemented, Open Approach (ICD-10-PCS; principal; 2018-10-13 08:20)
DX: S72.011A Unspecified intracapsular fracture of right femur, initial encounter for closed fracture (principal); D62 Acute posthemorrhagic anemia; E11.65 Type 2 diabetes mellitus with hyperglycemia; I95.9 Hypotension, unspecified; R50.9 Fever, unspecified; G20 Parkinson's disease; E78.5 Hyperlipidemia, unspecified; E03.9 Hypothyroidism, unspecified; M15.9 Polyosteoarthritis, unspecified; M48.10 Ankylosing hyperostosis [Forestier], site unspecified; H40.9 Unspecified glaucoma; I10 Essential (primary) hypertension; K21.9 Gastro-esophageal reflux disease without esophagitis; Z79.4 Long term (current) use of insulin; Z79.82 Long term (current) use of aspirin; Z79.890 Hormone replacement therapy; Z79.899 Other long term (current) drug therapy; Z87.891 Personal history of nicotine dependence; Z88.2 Allergy status to sulfonamides; Z88.8 Allergy status to other drugs, medicaments and biological substances; Z90.49 Acquired absence of other specified parts of digestive tract; Z98.49 Cataract extraction status, unspecified eye; Z96.1 Presence of intraocular lens; Z82.5 Family history of asthma and other chronic lower respiratory diseases; Z82.61 Family history of arthritis; W18.39XA Other fall on same level, initial encounter; Y92.008 Other place in unspecified non-institutional (private) residence as the place of occurrence of the external cause
CPT/HCPCS: 36415; 71045; 73501; 73502; 80053; 81003; 82550; 82553; 83735; 84484; 85025; 85610; 85730; 86850; 86891; 86900; 86901; 87040; 88300; 96374; 96375; 96376; 99285

== ENCOUNTER → 2019-05-07 | Outpatient (CLI) | payer MEDICARE ==
[2019-05-07 10:00] LABS: HCT 46.6 % (39.0-53.0); HGB 15.4 gm/dL (13.0-17.5); MCH 30.2 pg (25.0-35.0); MCHC 32.9 g/dL (31.0-37.0); MCV 91.7 fL (80.0-100.0); Mean Platelet Volume 6.7; Platelet Count 236 k/uL (150-450); RBC 5.08 m/uL (4.30-5.90); RDW 13.7 % (11.5-15.5); WBC 6.7 k/uL (3.8-10.6)
[2019-05-07 10:33] LABS: ALT 31 U/L (21-72); AST 31 U/L (17-59); African American GFR (CKD) >90 (>60 ml/min/1.73 sqM); Albumin 4.7 g/dL (3.5-5.0); Alkaline Phosphatase 89 U/L (38-126); Anion Gap 12 mmol/L; Blood Urea Nitrogen 15 mg/dL (9-20); Calcium 9.7 mg/dL (8.4-10.2); Carbon Dioxide 26 mmol/L (22-30); Chloride 104 mmol/L (98-107); Glucose 155 mg/dL (74-99); Sodium 142 mmol/L (137-145); Total Bilirubin 0.4 mg/dL (0.2-1.3)
== END | disposition home or self-care (01) ==
LOC: LABWHC1 09:15
PROVIDERS: ATTEND Orthopaedic Surgery
DX: Z01.812 Encounter for preprocedural laboratory examination (principal)
CPT/HCPCS: 36415; 80053; 85027; 85730; 87070

== ENCOUNTER 2019-05-25 07:30 | Day surgery (SDC) | payer MEDICARE ==
[~2019-05-25 07:30] MED LIST: ACETAMINOPHEN TAB 500 MG TAB PO ONE; DEXAMETHASONE SOD PHOSPHATE 10 MG/ML 1 ML VIAL IV ONE; HYDROmorphone 0.5 MG/0.5 ML SYRINGE IVP PRN; LACTATED RINGERS 1,000 ML IV SCH; MELOXICAM 7.5 MG TAB PO ONE; MIDAZOLAM 2 MG/2 ML VIAL IV PRN; ONDANSETRON 4 MG/2 ML VIAL IVP ONE; ROPIVACAINE 246.25 MG, EPINEPHrine 0.5 MG, KETOROLAC 30 MG, cloNIDine HCL/PF 80 MCG, WA... MISCELLANE ONE; TRANEXAMIC ACID 1,000 MG in SODIUM CHLORIDE 0.9% 100 ML IVPB ONE
[2019-05-25 08:14] LABS: Glucose,Whole Blood 143 mg/dL (75-99)
[2019-05-25] MEDS ORDERED: LIDOCAINE 1% 20 ML VIAL (10MG/ML) FOR IV START INTRADERMA ONE (08:20)
[2019-05-25] MEDS: LACTATED RINGERS 1,000 ML IV SCH ×2 (08:25→19:11)
[2019-05-25] MEDS ORDERED: hydrOXYzine PAMOATE 25 MG CAP PO PRN (09:13)
[2019-05-25] MEDS ORDERED: NALOXONE 0.4 MG/ML 1 ML VIAL IV PRN (09:13)
[2019-05-25] MEDS ORDERED: BISACODYL 10 MG SUPP RECTAL PRN (09:13)
[2019-05-25] MEDS ORDERED: NA PHOS,M-B/NA PHOS,DI-BA 133 ML ENEMA RECTAL PRN (09:13)
[2019-05-25] MEDS ORDERED: HYDROmorphone 0.5 MG/0.5 ML SYRINGE IVP PRN ×3 (09:13)
[2019-05-25] MEDS ORDERED: DIAZEPAM 5 MG TAB PO PRN (09:13)
[2019-05-25] MEDS ORDERED: ONDANSETRON 4 MG/2 ML VIAL IVP PRN (09:13)
[2019-05-25] MEDS ORDERED: MAGNESIUM HYDROXIDE 2,400 MG/10 ML CUP PO PRN (09:13)
[2019-05-25] MEDS ORDERED: HYDROcodone/APAP 7.5-325MG 1 EACH TAB PO PRN (09:15)
[2019-05-25] MEDS ORDERED: ROPIVACAINE 0.2%-NS ON-Q PUMP 1,090 MG, EMPTY PAIN BALL 1 EACH MISCELLANE PRN (09:26)
[2019-05-25] MEDS ORDERED: MIDAZOLAM 2 MG/2 ML VIAL ONE (09:32)
[2019-05-25] MEDS ORDERED: SODIUM CHLORIDE 0.9% 100 ML BAG ONE (09:32)
[2019-05-25] MEDS ORDERED: DEXAMETHASONE SOD PHOSPHATE 4 MG/ML 1 ML VIAL ONE (09:32)
[2019-05-25] MEDS ORDERED: TRANEXAMIC ACID 1,000 MG/10 ML VIAL ONE (09:32)
[2019-05-25] MEDS ORDERED: PROPOFOL 10 MG/ML 20 ML VIAL IV ONE (09:32)
[2019-05-25] MEDS ORDERED: fentaNYL (PF) 50 MCG/ML 2 ML AMP ONE (09:32)
--- NOTE | 2019-05-25 09:33 | P.ANPRN ---
Procedure Note - Anesthesia - Nerve Block Performed Left Adductor Canal Infusion Time Out Performed: Yes Date of Procedure: 05/25/19 Procedure Start Time: 08:39 Procedure Stop Time: 08:49 Location of Patient Procedure: PreOp Indication: Acute Post-Operative Pain, Dx/Pain Location (Left Knee Pain), Requested by Surgeon Sedation Type: Sedate with meaningful contact maintained Preparation: Sterile Prep Position: Supine Catheter: Indwelling Needle Types: Pajunk Needle Gauge: 21 Ultrasound used to visualize needle placement: Yes Ultrasound used to observe medication spread: Yes Injectate: 0.5% Ropivacaine (see comment for volume) (20ml) Blood Aspirated: No Pain Paresthesia on Injection Noted: No Resistance on Injection: Normal Image Stored and Saved: Yes Events: Uneventful and Well Tolerated
[2019-05-25] MEDS ORDERED: ceFAZolin 3,000 MG in SODIUM CHLORIDE 0.9% IRRIGATIO 3,000 ML IRRIGATION ONE (09:37)
[2019-05-25] MEDS ORDERED: LACTATED RINGERS 1,000 ML IV ONE (10:37)
--- NOTE | 2019-05-25 10:58 | P.OP ---
Date of Procedure: 05/25/19 Preoperative Diagnosis: Severe osteoarthritis left knee Postoperative Diagnosis: Severe osteoarthritis left knee Procedure(s) Performed: Left total knee arthroplasty with [employer] patient specific guides Implants: Meraz [employer] Nephew Journey II CR Oxinium cruciate retaining femoral component size 7, left Meraz [employer]hew Journey left nonporous tibial baseplate size 7 Meraz [employer] Nephew Journey II, XLPE Deep Dished articular insert, size 9 mm, Size 7- 8 left [employer] Journey BCS resurfacing oval patellar component, 35 mm All components were cemented using Palacos R bone cement. [employer] patient specific guides The articulation is Oxinium on polyethylene. Anesthesia: spinal Surgeon: Nate Lowery Print Production Coordinator #1: Marti Garcia Estimated Blood Loss (ml): 50 Pathology: other (Bone and cartilage) Condition: stable Disposition: PACU Indications for Procedure: After failure of conservative treatment we discussed the surgical and nonsurgical treatment options at length. Patient wishes to proceed with a total knee arthroplasty. Complications specific to this procedure were discussed at length, including but not limited to infection, bleeding, stiffness, and nerve injury. Patient is aware of all these complications and informed consent was obtained Operative Findings: The operative findings are consistent with severe osteoarthritis of the left knee Description of Procedure: Patient was seen in the preoperative area consent was reviewed and operative site was marked with a skin marker. An adductor canal pain catheter was placed by anesthesia in the preoperative area. Patient was then brought to the operating room and given preoperative antibiotics intravenously. A spinal anesthetic was administered by the anesthesia department. A tourniquet was placed on the upper thigh and the lower extremity was prepped and draped in usual sterile fashion. A gram of transexamic acid was given. A universal timeout was then performed which confirmed the patient's name, surgical site, ALLERGIES, and consent. The lower extremity was then exsanguinated and tourniquet was inflated to 250 mmHg. A standard and anterior midline approach to the knee was performed. The skin and subcutaneous tissue was dissected down to the patellar tendon. A medial parapatellar arthrotomy was then performed. The knee was then extended, the patellar was everted, and the knee was again flexed. Anterior horns of both menisci were excised, and a release was performed to the posterior medial aspect of the knee. On gross visual inspection, there was complete loss of articular cartilage in the medial and patellofemoral joint spaces. There was also significant cartilage damage in the lateral compartment. There were multiple periarticular osteophytes. The patient specific guide was placed on the distal femur, and pinned in place. Using the patient specific guide, the distal femoral cut was performed. The cutting block was then removed and the cut was checked for flatness. The appropriate 5-in-1 cutting block was then pinned in place through the holes that were drilled through the patient specific guide. The anterior condyles were cut without notching. The posterior and chamfer cuts were performed while protecting the collateral ligaments. The cutting block was then removed. Attention was then directed to the tibia. The remaining ACL was removed with a Ronguer, and the tibia was then gently subluxed forward with a large bent knee retractor. Any remaining menisci was excised. The posterior lateral corner was cauterized in order to cauterize the lateral geniculate artery. The patient specific guide for the tibia was then placed and was held in place with pins. Pinholes were then placed for rotation of the tibial component as well. Proximal tibia was then cut and sized. Next trials were then placed with the appropriate-sized insert. The knee was able to fully extend and flex to 130 and was stable throughout all range of motion. The knee was then extended, patella everted. Patella was then measured, and then using an osteotomy guide, the patella was cut at the appropriate level. The patella was then measured and drilled and the patella trial was then placed. The knee was then taken through range of motion with the patella trial and the patella tracked normally. The knee was then extended patella trial was then removed and the patella was everted. Knee was then flexed and lug holes were drilled through the femoral trial and the femoral trial was then removed. The tibial was then exposed, and the tibial broach guide was then pinned in place after it was set for the appropriate rotation to allow for the most coverage without overhang. The tibia was then reamed and broached. The cut surfaces of bone were then irrigated with pulsatile lavage. The posterior structures were injected with the ropivacaine solution. The knee was also irrigated with Irrisept solution. The components were then opened, the cement was mixed, and the components were then cemented in place. The cement was allowed to harden with the knee in full extension. While the cement was hardening, the remaining soft tissues were then injected with a ropivacaine solution, which consisted of 246.25 mg of ropivacaine, 0.5 mg of epinephrine, 30 mg of Toradol, 80 g of clonidine, and 48.45 mL of sterile water, for a total of 100 mL of fluid injected. After the cemented hardened. The tourniquet was released, and hemostasis was obtained. A second gram of transexamic acid was given. The knee was again irrigated. The knee was again taken through range of motion and found to be stable throughout all range of motion of 0-130, and the patella tracked normally. The fascia was then closed with #2 strata fix suture. The subcutaneous tissue was closed with 3-0 Vicryl and 3-0 strata fix. Dermabond glue was used for the skin and placed with the knee in flexion. The patient was placed in a sterile silver dressing. Patient was then transferred to recovery room in stable condition. The biology laboratory assistant GENOVEVA Ziegler was required due the complexity surgery and the need for a skilled school health assistant. She assisted in positioning, draping, retraction, and closure of the wound.
[2019-05-25 12:02] LABS: Glucose,Whole Blood 183 mg/dL (75-99)
--- NOTE | 2019-05-25 12:04 | XR ---
EXAMINATION TYPE: XR knee limited LT DATE OF EXAM: 05/25/2019 CLINICAL HISTORY: Left knee pain and arthritis status post total knee replacement. TECHNIQUE: Portable AP and crosstable lateral views of the left knee are obtained immediately postop eratively. COMPARISON: None FINDINGS: Metallic hardware from total left knee arthroplasty is seen and appears satisfactory in al ignment and position. There is evidence of recent surgery with diffuse subcutaneous gas , and soft t issue swelling noted. Posterior vascular calcification is present. IMPRESSION: METALLIC HARDWARE FROM TOTAL LEFT KNEE ARTHROPLASTY IS SATISFACTORY IN ALIGNMENT.
[2019-05-25 15:47] VITALS: BMI 30.1
[2019-05-25] MEDS: SODIUM CHLORIDE 0.9% 1,000 ML IV SCH ×2 (16:47→21:02)
[2019-05-25 16:49] LABS: Glucose,Whole Blood 253 mg/dL (75-99)
[2019-05-25] MEDS: INSULIN ASPART (NovoLOG) 100 UNIT/ML VIAL SQ SCH (18:38)
[2019-05-25 18:57] LABS: Glucose,Whole Blood 245 mg/dL (75-99)
[2019-05-25] MEDS ORDERED: diphenhydrAMINE 25 MG CAP PO PRN (20:14)
[2019-05-25 20:34] LABS: Glucose,Whole Blood 202 mg/dL (75-99)
[2019-05-25] MEDS ORDERED: INSULIN ASPART (NovoLOG) 100 UNIT/ML VIAL SQ ONE (20:46)
[2019-05-25] MEDS: ASPIRIN 325 MG TAB PO SCH (20:59)
[2019-05-25] MEDS: LISINOPRIL 20 MG TAB PO SCH (20:59)
[2019-05-25] MEDS ORDERED: FLUTICASONE 50MCG/SPRAY NASAL 16GM EA NOSTRIL SCH (21:00)
[2019-05-25] MEDS ORDERED: SENNOSIDES-DOCUSATE SODIUM 1 EACH TAB PO SCH (21:00)
[2019-05-25] MEDS ORDERED: ALBUTEROL NEBULIZED 2.5 MG/3 ML INHALATION PRN (21:27)
[2019-05-25] MEDS ORDERED: LATANOPROST 0.005% OPHTH DROPS 2.5 ML BTL RIGHT EYE SCH (21:30)
[2019-05-25] MEDS ORDERED: INSULIN DETEMIR (LEVEMIR) 100 UNIT/ML SYR SQ SCH (21:30)
--- NOTE | 2019-05-25 22:08 | P.CONS ---
History of Present Illness - Reason for Consult Consult date: 05/25/19 Medical management Requesting physician: Nate Lowery - Chief Complaint Left knee surgery - History of Present Illness Consultation: This is a pleasant 74-year-old patient of Dr. Lloyd Anderson. Chronic stable medical conditions include hypothyroid, diabetes, GERD, hyperlipidemia, hypertension, early Parkinson's disease and history of this. Patient was in the hospital earlier this year for a right femur fracture neck repair. Since there is no new change in his medical history. Patient earlier today he has undergone a left total knee arthroplasty. Slight pain is present. No nausea vomiting. No chest pain no palpitation. Did tolerate her supper. Laying in bed comfortable. Review of systems: GEN.: None EYES: None HEENT: None NECK: None RESPIRATORY: None CARDIOVASCULAR: None GASTROINTESTINAL: Reflux GENITOURINARY: None MUSCULOSKELETAL: Pain in joints LYMPHATICS: None HEMATOLOGICAL: None PSYCHIATRY: None NEUROLOGICAL: None Social history: , no smoking, no alcohol. 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 EYES: Pupils equal. Conjunctiva normal. HEENT: External appearance of nose and ears normal, oral cavity grossly normal. NECK: JVD not raised; masses not palpable. HEART: First and second heart sounds are normal; no edema. LUNGS: Respiratory rate normal; clear to auscultation. ABDOMEN: Soft, nontender, liver spleen not palpable, no masses palpable. PSYCH: Alert and oriented x3; mood and affect normal. NEUROLOGICAL: Cranial nerves grossly intact; no facial asymmetry, power and sensation grossly intact. LYMPHATICS: No lymph nodes palpable in the axilla and neck MUSCULOSKELETAL: Dressing over the left knee, evidence of OA in the hands INVESTIGATIONS, reviewed in the clinical context: Blood work from May 07 White count 6.7 hemoglobin 15.4 platelets 236 potassium 5 creatinine 0.82 Assessment: -Left total knee arthroplasty -Hypothyroidism -Primary osteoarthritis of multiple joints -Diabetes mellitus type 2 chronically on insulin -GERD -Hyperlipidemia -Essential hypertension -Early Parkinson disorder not on any medications Plan: Home medications resumed. Accu-Cheks will be followed. Patient is on aspirin 325 mg twice a day for DVT prophylaxis. Care was discussed with the patient question were answered. We'll follow along. Thank you Dr. Lowery Past Medical History Past Medical History: Diabetes Mellitus, Eye Disorder, GERD/Reflux, Hyperlipide nigel, Hypertension, Neurologic Disorder, Thyroid Disorder Additional Past Medical History / Comment(s): hx Kidney stone , GLAUCOMA RT EYE, START OF PARKINSONS,DIFFUSE IDIOPATHIC SKELETAL HYPERTOSIS(DISH), hx pancreatitis PT STATED APPETITE DOWN SINCE JANUARY HAS LOST 30 POUNDS. History of Any Multi-Drug Resistant Organisms: None Reported Past Surgical History: Cholecystectomy, Joint Replacement Additional Past Surgical History / Comment(s): Yuniel Cataract surgery, rt rotator cuff repair. nose fx with surgery, rt hip replacement Past Anesthesia/Blood Transfusion Reactions: No Reported Reaction Additional Past Anesthesia/Blood Transfusion Reaction / Comm: HAS NEVER HAD GENERAL ANESTHESIA. Past Psychological History: No Psychological Hx Reported Additional Psychological History / Comment(s): PT LIVES WITH HIS , IS INDEPENDANT-NO OUTSIDES SERVICES. Smoking Status: Former smoker Past Alcohol Use History: None Reported Additional Past Alcohol Use History / Comment(s): smoker for 15 years 1 ppd quit age 31 Past Drug Use History: None Reported - Past Family History Father Family Medical History: COPD Additional Family Medical History / Comment(s): EMPHYSEMA Mother Family Medical History: Rheumatoid Arthritis (RA) Medications and Allergies Home Medications Medication Instructions Recorded Confirmed Type Aspirin 81 mg PO DAILY 05/31/15 05/25/19 History Enalapril [Vasotec] 20 mg PO BID 05/31/15 05/25/19 History Ergocalciferol [Vitamin D2 50,000 unit PO SA 05/31/15 05/25/19 History (APOLINAR)] Fluticasone Nasal [place] [Flonase 2 spray EA NOSTRIL HS 05/31/15 05/25/19 History Nasal [place]] Levothyroxine Sodium [Synthroid] 137 mcg PO QAM 05/31/15 05/25/19 History Magnesium 500 mg PO DAILY 05/31/15 05/25/19 History Niacin 500 mg PO DAILY 05/31/15 05/25/19 History Omeprazole [PriLOSEC] 20 mg PO DAILY 05/31/15 05/25/19 History Travoprost [Travatan Z 0.004%] 1 drop RIGHT EYE HS 05/31/15 05/25/19 History metFORMIN HCL 1,000 mg PO W/SUPPER 05/31/15 05/25/19 History metFORMIN HCL 500 mg PO QAM 05/31/15 05/25/19 History Loratadine [Claritin] 10 mg PO DAILY 06/07/15 05/25/19 History Acetaminophen [Tylenol Extra 1,000 mg PO HS PRN 10/12/18 05/25/19 History Strength] Albuterol Inhaler [Ventolin Hfa 2 puff INHALATION RT-Q4H PRN 10/12/18 05/25/19 History Inhaler] Insulin Aspart [NovoLOG Flexpen] 0 units SQ QID 10/12/18 05/25/19 History Insulin NPH Human Isophane 0 unit SQ HS 10/12/18 05/25/19 History [NovoLIN N] Sertraline [Zoloft] 100 mg PO DAILY 10/12/18 05/25/19 History fentaNYL 25MCG/HR PATCH [Duragesic 25 mcg TRANSDERM Q72H 10/12/18 05/25/19 History 25MCG/HR] HYDROcodone/APAP 7.5-325MG [[place] 1 - 2 tab PO Q4-6H PRN #84 tab 10/16/18 05/25/19 Rx 7.5-325] diphenhydrAMINE HCL [Benadryl] 25 mg PO HS PRN 05/25/19 05/25/19 History Allergies Allergy/AdvReac Type Severity Reaction Status Date / Time Ptnamlo-Wpw-Oni Reductase Allergy Abdominal Verified 05/25/19 07:51 Inhibitor Pain Sulfa (Sulfonamide Allergy Unknown Verified 05/25/19 07:51 Antibiotics) Physical Exam Vitals: Vital Signs Temp Pulse Pulse Resp BP Pulse Ox 05/25/19 20:13 97.9 F 85 19 186/71 96 05/25/19 15:17 154/83 05/25/19 14:58 97.5 F L 62 15 175/73 95 05/25/19 14:30 58 L 16 159/60 95 05/25/19 14:00 52 L 16 157/70 93 L 05/25/19 13:30 54 L 16 159/71 93 L 05/25/19 13:15 58 L 16 137/66 95 05/25/19 13:00 54 L 16 141/67 92 L 05/25/19 12:45 53 L 16 134/66 93 L 05/25/19 12:30 63 16 136/62 94 L 08/27/19 12:15 61 16 152/67 92 L 05/25/19 12:00 60 16 122/58 92 L 05/25/19 11:41 98 F 94 16 144/61 94 L 05/25/19 08:55 52 L 18 144/65 97 05/25/19 08:03 97.6 F 56 L 18 170/76 94 L Intake and Output 05/25/19 05/25/19 05/25/19 06:59 14:59 22:59 Intake Total 1651 Output Total 50 550 Balance 1601 -550 Intake: IV 1651 Output: Urine 550 Estimated Blood Loss 50 Other: Voiding Method Toilet # Voids 1 # Bowel Movements 1 Weight 92.533 kg Results Labs: Abnormal Lab Results - Last 24 Hours (Table) 05/25/19 05/25/19 05/25/19 Range/Units 08:11 12:00 16:46 POC Glucose (mg/dL) 143 H 183 H 253 H (75-99) mg/dL 05/25/19 05/25/19 Range/Units 18:37 20:32 POC Glucose (mg/dL) 245 H 202 H (75-99) mg/dL
[2019-05-25 22:47] LABS: Glucose,Whole Blood 164 mg/dL (75-99)
[2019-05-26] MEDS: HYDROcodone/APAP 7.5-325MG 1 EACH TAB PO PRN ×2 (00:24→08:09)
[2019-05-26 01:29] VITALS: BP 138/72; PULSE 62; RESP 18; TEMP 98
[2019-05-26] MEDS ORDERED: LEVOTHYROXINE 137 MCG TAB ONE (05:18)
[2019-05-26] MEDS ORDERED: LEVOTHYROXINE 137 MCG TAB PO SCH (06:30)
[2019-05-26 07:05] LABS: Glucose,Whole Blood 162 mg/dL (75-99)
--- NOTE | 2019-05-26 07:18 | P.PN ---
Progress Note - Text Progress Note Date: 05/26/19 74-year-old male status post left total knee arthroplasty with a left abductor canal catheter postop day #1. Patient doing well VAS 1-2 out of 10 in severity. He's been ambulating, no nausea no vomiting, no motor sensory deficit. Patient is doing well postoperatively. From anesthesia standpoint he appears adequate for discharge.
[2019-05-26] MEDS ORDERED: metFORMIN 500 MG TAB PO SCH ×2 (07:30→17:30)
[2019-05-26] MEDS ORDERED: PANTOPRAZOLE 40 MG TABLET PO SCH (07:30)
[2019-05-26] MEDS: ASPIRIN 325 MG TAB PO SCH (08:08)
[2019-05-26] MEDS: INSULIN ASPART (NovoLOG) 100 UNIT/ML VIAL SQ SCH (08:08)
[2019-05-26] MEDS: LISINOPRIL 20 MG TAB PO SCH (08:09)
[2019-05-26] MEDS ORDERED: MAGNESIUM OXIDE 400 MG TAB PO SCH (09:00)
[2019-05-26] MEDS ORDERED: LORATADINE 10 MG TAB PO SCH (09:00)
[2019-05-26] MEDS ORDERED: MELOXICAM 7.5 MG TAB PO SCH (09:00)
[2019-05-26] MEDS ORDERED: SERTRALINE 100 MG TAB PO SCH (09:00)
--- NOTE | 2019-05-26 09:22 | P.DS ---
Providers Expected date of discharge: 05/26/19 Attending physician: Nate Lowery Consults: 05/25/19 09:13 Consult Physician Routine Consulting Provider: Olvin Mascorro Consult Reason/Comments: medical management Do you want consulting provider notified?: Yes Primary care physician: Lloyd Romano - Discharge Diagnosis(es) (1) Status post total left knee replacement Current Visit: Yes Status: Acute (2) Osteoarthritis of left knee Current Visit: Yes Status: Acute Hospital Course: This is a 74-year-old male with known history of degenerative arthritis of the left knee. The patient presents for evaluation. After discussion and consideration patient elects to proceed with total knee arthroplasty. The patient is seen preoperatively by Dr. Lowery and medically cleared for surgery by their primary care physician. Patient is admitted to [facility] on 05/25/2019 for left total knee arthroplasty with [facility] patient specific guides. The procedures performed without complication or sequelae. The patient is doing well postoperatively. Labs and vital signs are stable on day of discharge. On day of discharge patient's knee incision is healing well. There is minimal erythema. There is no drainage noted at this time. There is minimal soft tissue swelling to the knee. Patient has full foot and ankle motion without difficulty or pain. Calf is soft and nontender to palpation. Neurovascular status to the left lower extremity is intact. Patient is discharged home in good condition. Patient receives narcotic pain medication regularly from the [place] and will continue to do this postoperatively for pain management. Please see med rec for accurate list of home medications. Plan - Discharge Summary Discharge Rx Participant: No New Discharge Prescriptions: New Aspirin 325 mg PO BID #60 tab No Action metFORMIN HCL 500 mg PO QAM metFORMIN HCL 1,000 mg PO W/SUPPER Niacin 500 mg PO DAILY Levothyroxine Sodium [Synthroid] 137 mcg PO QAM Enalapril [Vasotec] 20 mg PO BID Aspirin 81 mg PO DAILY Omeprazole [PriLOSEC] 20 mg PO DAILY Magnesium 500 mg PO DAILY Fluticasone Nasal [place] [Flonase Nasal [place]] 2 spray EA NOSTRIL HS Ergocalciferol [Vitamin D2 (DRISDOL)] 50,000 unit PO SA Travoprost [Travatan Z 0.004%] 1 drop RIGHT EYE HS Loratadine [Claritin] 10 mg PO DAILY Albuterol Inhaler [Ventolin Hfa Inhaler] 2 puff INHALATION RT-Q4H PRN PRN Reason: Shortness Of Breath Insulin Aspart [NovoLOG Flexpen] 0 units SQ QID Insulin NPH Human Isophane [NovoLIN N] 0 unit SQ HS fentaNYL 25MCG/HR PATCH [Duragesic 25MCG/HR] 25 mcg TRANSDERM Q72H Acetaminophen [Tylenol Extra Strength] 1,000 mg PO HS PRN PRN Reason: Pain Sertraline [Zoloft] 100 mg PO DAILY HYDROcodone/APAP 7.5-325MG [[place] 7.5-325] 1 - 2 tab PO Q4-6H PRN #84 tab PRN Reason: Pain diphenhydrAMINE HCL [Benadryl] 25 mg PO HS PRN PRN Reason: Insomnia Discharge Medication List Aspirin 81 mg PO DAILY 05/31/15 [History] Enalapril [Vasotec] 20 mg PO BID 05/31/15 [History] Ergocalciferol [Vitamin D2 (DRISDOL)] 50,000 unit PO SA 05/31/15 [History] Fluticasone Nasal [place] [Flonase Nasal [place]] 2 spray EA NOSTRIL HS 05/31/15 [History] Levothyroxine Sodium [Synthroid] 137 mcg PO QAM 05/31/15 [History] Magnesium 500 mg PO DAILY 05/31/15 [History] Niacin 500 mg PO DAILY 05/31/15 [History] Omeprazole [PriLOSEC] 20 mg PO DAILY 05/31/15 [History] Travoprost [Travatan Z 0.004%] 1 drop RIGHT EYE HS 05/31/15 [History] metFORMIN HCL 1,000 mg PO W/SUPPER 05/31/15 [History] metFORMIN HCL 500 mg PO QAM 05/31/15 [History] Loratadine [Claritin] 10 mg PO DAILY 06/07/15 [History] Acetaminophen [Tylenol Extra Strength] 1,000 mg PO HS PRN 10/12/18 [History] Albuterol Inhaler [Ventolin Hfa Inhaler] 2 puff INHALATION RT-Q4H PRN 10/12/18 [History] Insulin Aspart [NovoLOG Flexpen] 0 units SQ QID 10/12/18 [History] Insulin NPH Human Isophane [NovoLIN N] 0 unit SQ HS 10/12/18 [History] Sertraline [Zoloft] 100 mg PO DAILY 10/12/18 [History] fentaNYL 25MCG/HR PATCH [Duragesic 25MCG/HR] 25 mcg TRANSDERM Q72H 10/12/18 [History] HYDROcodone/APAP 7.5-325MG [[place] 7.5-325] 1 - 2 tab PO Q4-6H PRN #84 tab 10/16/18 [Rx] diphenhydrAMINE HCL [Benadryl] 25 mg PO HS PRN 05/25/19 [History] Aspirin 325 mg PO BID #60 tab 05/26/19 [Rx] Follow up Appointment(s)/Referral(s): Nate Lowery DO [Doctor of Osteopathic Medicine] - 2 Weeks Activity/Diet/Wound Care/Special Instructions: Weightbearing as tolerated with a walker. CPM 5-6h daily. Leave dressing intact. May be removed by home care nurse or by patient in 10 days. May shower with dressing on. Recommend use of compression stockings daily for at least 2 weeks during the day to help prevent swelling and blood clots. May remove at night before sleeping. Please follow up with [facility] and call with any questions or concerns, . Discharge Disposition: HOME WITH HOME HEALTH SERVICES
[2019-05-26 10:08] LABS: Basophils % (A) 0 %; Eosinophils # (A) 0.1 k/uL (0-0.7); Eosinophils % (A) 1 %; HCT 32.8 % (39.0-53.0); Lymphocytes % (A) 12 %; MCH 30.2 pg (25.0-35.0); MCHC 33.8 g/dL (31.0-37.0); MCV 89.4 fL (80.0-100.0); Mean Platelet Volume 7.5; Monocytes # (A) 0.7 k/uL (0-1.0); Monocytes % (A) 9 %; Neutrophils % (A) 75 %; Platelet Count 201 k/uL (150-450); RBC 3.67 m/uL (4.30-5.90); RDW 14.1 % (11.5-15.5)
[2019-05-26 10:16] LABS: HGB 11.1 gm/dL (13.0-17.5)
[2019-05-29] MEDS ORDERED: ERGOCALCIFEROL 50,000 UNIT CAP PO SCH (09:00)
== END 2019-05-26 11:11 | disposition home health service (06) ==
LOC: OR 07:30 → EDSTATUS 11:40 → 4SSUR 14:29 → OR 05-26 11:11
PROVIDERS: ATTEND Orthopaedic Surgery
DX: M17.12 Unilateral primary osteoarthritis, left knee (principal); E03.9 Hypothyroidism, unspecified; K21.9 Gastro-esophageal reflux disease without esophagitis; E11.39 Type 2 diabetes mellitus with other diabetic ophthalmic complication; H42 Glaucoma in diseases classified elsewhere; E78.5 Hyperlipidemia, unspecified; I10 Essential (primary) hypertension; G20 Parkinson's disease; F32.9 Major depressive disorder, single episode, unspecified; Z79.4 Long term (current) use of insulin; Z79.82 Long term (current) use of aspirin; Z79.899 Other long term (current) drug therapy; Z87.442 Personal history of urinary calculi; Z98.42 Cataract extraction status, left eye; Z98.41 Cataract extraction status, right eye; Z96.641 Presence of right artificial hip joint; Z88.2 Allergy status to sulfonamides; Z88.8 Allergy status to other drugs, medicaments and biological substances; Z87.891 Personal history of nicotine dependence
CPT/HCPCS: 27447; 97161; 85025; 88300; 73560; C1713; C1776; C1772; J2250; J0171; J1100 ×2; J0690 ×3; J2405; J3010; J1885; J2795 ×2; J2704; J0735

== ENCOUNTER → 2020-03-15 | Day surgery (SDC) | payer MEDICARE ==
[2020-03-14 09:19] VITALS: BMI 29.5
[~2020-03-15] MED LIST changes: -ACETAMINOPHEN TAB 500 MG TAB PO ONE; -DEXAMETHASONE SOD PHOSPHATE 10 MG/ML 1 ML VIAL IV ONE; -HYDROmorphone 0.5 MG/0.5 ML SYRINGE IVP PRN; -MELOXICAM 7.5 MG TAB PO ONE; -MIDAZOLAM 2 MG/2 ML VIAL IV PRN; -ONDANSETRON 4 MG/2 ML VIAL IVP ONE; +PROPOFOL 10 MG/ML 20 ML VIAL IV ONE; -ROPIVACAINE 246.25 MG, EPINEPHrine 0.5 MG, KETOROLAC 30 MG, cloNIDine HCL/PF 80 MCG, WA... MISCELLANE ONE; -TRANEXAMIC ACID 1,000 MG in SODIUM CHLORIDE 0.9% 100 ML IVPB ONE
[2020-03-15 08:10] VITALS: TEMP 96.2
[2020-03-15 08:10] LABS: Glucose,Whole Blood 179 mg/dL (75-99)
--- NOTE | 2020-03-15 08:40 | P.PCN ---
Date of Procedure: 03/15/20 Procedure(s) Performed: BRIEF HISTORY: Patient is a 75-year-old pleasant male scheduled for an elective colonoscopy as a part of evaluation of Hemoccult-positive stool. PROCEDURE PERFORMED: Colonoscopy. PREOPERATIVE DIAGNOSIS: Blood in the stool. IV sedation per Anesthesia. PROCEDURE: After informed consent was obtained, the patient, was brought into the endoscopy unit. IV sedation was administered by Anesthesia under continuous monitoring. Digital rectal examination was normal. Initially the Olympus CF-160 flexible video colonoscope was then inserted in the rectum, gradually advanced into the cecum without any difficulty. Careful examination was performed as the scope was gradually being withdrawn. Ileocecal valve and the appendiceal orifice were visualized and appeared normal. Prep was excellent. Mucosa of the cecum, ascending colon, transverse colon, descending colon, sigmoid colon, and rectum appeared normal. Scattered sigmoid diverticulosis. Retroflexion was performed in the rectum and small internal hemorrhoids were seen. The patient tolerated the procedure well. IMPRESSION: Normal-appearing colon from rectum to cecum with no evidence of colorectal neoplasia. Scattered sigmoid diverticulosis Small internal hemorrhoids RECOMMENDATIONS: Findings of this examination were discussed with the patient as well as his family. He was advised to continue with a high-fiber diet and take fiber supplements..
[2020-03-15 08:48] LABS: Glucose,Whole Blood 191 mg/dL (75-99)
[2020-03-15 09:05] VITALS: BP 137/75; PULSE 65; RESP 18
== END ==
LOC: ORWHC2ENDO 07:41
PROVIDERS: ATTEND Internal Medicine Gastroenterology
DX: K64.8 Other hemorrhoids (principal); K57.30 Diverticulosis of large intestine without perforation or abscess without bleeding; I10 Essential (primary) hypertension; J45.909 Unspecified asthma, uncomplicated; E11.9 Type 2 diabetes mellitus without complications; E07.9 Disorder of thyroid, unspecified; K21.9 Gastro-esophageal reflux disease without esophagitis; Z88.2 Allergy status to sulfonamides; Z88.8 Allergy status to other drugs, medicaments and biological substances; Z87.891 Personal history of nicotine dependence; Z79.82 Long term (current) use of aspirin; Z79.890 Hormone replacement therapy; Z79.899 Other long term (current) drug therapy
CPT/HCPCS: 45378; J2704

== ENCOUNTER → 2021-02-08 | Outpatient (CLI) | payer MEDICARE | END | disposition home or self-care (01) | LOC: LABWHC1 08:54 | PROVIDERS: ATTEND Psychiatry & Neurology Neurology | DX: R25.2 Cramp and spasm (principal) | CPT/HCPCS: 36415; 82550; 82607; 84439; 84443; 84481 ==

== ENCOUNTER → 2022-12-16 | Outpatient (CLI) | payer MEDICARE ==
[2022-12-16 12:13] LABS: Partial Thromboplastin Time 24.5 sec (22.0-30.0)
[2022-12-16 12:40] LABS: Prothrombin Time 10.3 sec (9.0-12.0)
[2022-12-16 18:17] LABS: HCT 41.5 % (39.6-50.0); HGB 12.2 g/dL (13.0-17.0); MCH 25.5 pg (27.0-32.0); MCHC 29.4 g/dL (32.0-37.0); MCV 86.8 fL (80.0-97.0); Mean Platelet Volume 9.9 fL (9.5-12.2); NRBC Per 100 WBC 0 /100 WBCS (0.0-0.0); Platelet Count 289 X 10*3/uL (140-440); RBC 4.78 X 10*6/uL (4.40-5.60); RDW 14.5 % (11.5-14.5); WBC 10.76 X 10*3/uL (4.50-10.00)
[2022-12-16 19:35] LABS: African American GFR (CKD) 94.5 (60.0-200.0); Albumin 4.4 g/dL (3.8-4.9); Albumin/Globulin Ratio 1.74 (1.60-3.17); Anion Gap 12.4 mmol/L (10.00-18.00); BUN/Creat Ratio 20.36 Ratio (12.00-20.00); Blood Urea Nitrogen 18.3 mg/dL (9.0-27.0); Calcium 10.1 mg/dL (8.7-10.3); Carbon Dioxide 28.3 mmol/L (20.0-27.5); Globulin 2.5 g/dL (1.6-3.3); Non-African American GFR(CKD) 81.6 (60.0-200.0); Potassium 5.2 mmol/L (3.5-5.5); Total Bilirubin 0.2 mg/dL (0.30-1.20)
[2022-12-16 20:34] LABS: Appearance,Urine Clear (Clear); Bilirubin,Urine Negative (Negative); Blood,Urine Negative (Negative); Color,Urine Yellow (Yellow); Ketones,Urine Negative (Negative); Nitrite,Urine Negative (Negative); Specific Gravity,Urine 1.016 (1.001-1.030)
[2022-12-16 20:38] LABS: Bacteria,Urine None Seen /HPF (None Seen)
== END | disposition home or self-care (01) ==
LOC: LABPAT 10:49
PROVIDERS: ATTEND Orthopaedic Surgery
DX: Z01.818 Encounter for other preprocedural examination (principal); M17.11 Unilateral primary osteoarthritis, right knee; I49.1 Atrial premature depolarization; I49.3 Ventricular premature depolarization
CPT/HCPCS: 80053; 81001; 85027; 85610; 85730; 87070; 93005

== ENCOUNTER 2022-12-24 09:13 | Observation (INO) | payer MEDICARE ==
[~2022-12-24 09:13] MED LIST changes: +ACETAMINOPHEN TAB 500 MG TAB PO PRN; +DEXAMETHASONE SOD PHOSPHATE 4 MG/ML 1 ML VIAL IV ONE; +GABAPENTIN 300 MG CAP PO PRN; +HYDROmorphone 0.5 MG/0.5 ML SYRINGE IVP PRN; -LACTATED RINGERS 1,000 ML IV SCH; +LIDOCAINE 1% (10MG/ML) FOR IV START INTRADERMA PRN; +MELOXICAM 7.5 MG TAB PO PRN; +ONDANSETRON 4 MG/2 ML VIAL IVP ONE; -PROPOFOL 10 MG/ML 20 ML VIAL IV ONE; +TRANEXAMIC ACID IN NACL,ISO-OS 1,000 MG in SALINE 1 100ML.BAG IVPB PRN; +VANCOMYCIN 1,250 MG in SODIUM CHLORIDE 0.9% 250 ML IVPB PRN
[2022-12-24] MEDS ORDERED: NALOXONE 0.4 MG/ML 1 ML VIAL IV PRN (09:15)
[2022-12-24] MEDS ORDERED: NA PHOS,M-B/NA PHOS,DI-BA 133 ML ENEMA RECTAL PRN (09:15)
[2022-12-24] MEDS ORDERED: ONDANSETRON 4 MG/2 ML VIAL IVP PRN (09:15)
[2022-12-24] MEDS ORDERED: HYDROmorphone 0.5 MG/0.5 ML SYRINGE IVP PRN ×3 (09:15)
[2022-12-24] MEDS ORDERED: MAGNESIUM HYDROXIDE 2,400 MG/10 ML CUP PO PRN (09:15)
[2022-12-24] MEDS ORDERED: bisacodyL 10 MG SUPP RECTAL PRN (09:15)
[2022-12-24] MEDS ORDERED: HYDROcodone/APAP 7.5-325MG 1 EACH TAB PO PRN ×2 (09:16)
[2022-12-24 09:54] LABS: Glucose,Whole Blood 103 mg/dL (70-110)
[2022-12-24] MEDS: LACTATED RINGERS 1,000 ML IV SCH (09:54)
[2022-12-24] MEDS ORDERED: HYDROCORTISONE SUCCINATE 100 MG/2 ML VIAL IVP ONE (10:00)
[2022-12-24] MEDS ORDERED: MIDAZOLAM 2 MG/2 ML VIAL IVP ONE (10:27)
[2022-12-24] MEDS ORDERED: SODIUM CHLORIDE 0.9% 50 ML with ceFAZolin 2,000 MG IV ONE ×2 (11:49)
[2022-12-24] MEDS ORDERED: ceFAZolin 1,000 MG in SODIUM CHLORIDE 0.9% 1,000 ML IRRIGATION ONE (11:49)
--- NOTE | 2022-12-24 12:36 | P.OP ---
Date of Procedure: 12/24/22 Preoperative Diagnosis: Severe osteoarthritis right knee Postoperative Diagnosis: Severe osteoarthritis right knee Procedure(s) Performed: Right total knee arthroplasty using Lucky Paiaire patient specific guidance Implants: Mer[employer] Nephew Journey II CR Oxinium cruciate retaining femoral component size 6, right [employer] Journey nonporous tibial baseplate size 7, right [employer] Journey II, XLPE Deep Dished articular insert, size 13 mm, Size 7-8, right [employer] Journey Shannen II resurfacing patellar component, oval, 32 mm All components were cemented using Palacos R bone cement The articulation is Oxinium on polyethylene Visionaire patient specific guides Anesthesia: spinal Surgeon: Nate Lowery Truck Farmer #1: Marti Garcia Estimated Blood Loss (ml): 50 Pathology: other (Bone and cartilage) Condition: stable Disposition: PACU Indications for Procedure: The patient's knee is end-stage, and conservative management has failed. The operation of knee replacement has been discussed at length in the office, as well as potential risks and complications. These are inclusive of, but not limited to: Infection, bleeding, scarring, discomfort, stiffness, blood vessel and nerve damage, need for further surgery, failure to relieve symptoms, persistence, recurrence, or worsening of problems, loosening, dislocation, wear, blood clot, pulmonary embolism, , gait dysfunction, stiffness, and other risks as discussed in the office. Patient elects to proceed and the consent form has been signed. Operative Findings: The operative findings are consistent with severe osteoarthritis of the right knee Description of Procedure: Patient was seen in the preoperative area and the consent was reviewed and the operative site was marked with a skin marker. The patient verified the procedure and the operative site. An adductor canal pain catheter was placed by anesthesia in the preoperative area. The patient was then brought to the operating room and given preoperative antibiotics intravenously. A gram of transexamic acid was given intravenously. A spinal anesthetic was administered by the anesthesia department. A tourniquet was placed on the upper thigh and the lower extremity was prepped with chlorhexidine and draped in usual sterile fashion. A universal timeout was then performed which confirmed the patient's name, surgical site, ALLERGIES, and consent. The lower extremity was then exsanguinated and tourniquet was inflated to 250 mmHg. A standard anterior midline approach to the knee was performed. The skin and subcutaneous tissue were sharply dissected down to the patellar tendon. A medial parapatellar arthrotomy was then performed. The knee was then extended, the patellar was everted, and the knee was again flexed. The infra-patellar fat pad was removed in order to enhance exposure. The anterior horns of both menisci were excised, and a release was performed to the posterior medial aspect of the knee. On gross visual inspection, there was complete loss of articular cartilage in the medial and patellofemoral joint spaces. There was also significant cartilage damage in the lateral compartment. There were multiple periarticular osteophytes globally about the knee. The patient specific guide was placed on the distal femur, and pinned in place. Using the patient specific guide, the distal femoral cut was performed. The cutting block was then removed and the cut was checked for symmetry. The spikes of the femoral block was then placed into the predrilled holes, and malleted into place. Two 45 mm pins were then placed into the fixation holes on the cutting block. An vitor wing was then used to ensure there would be no notching with the anterior cut. The anterior condyles were cut without notching. The anterior chord cut was then performed, followed by the posterior cut, posterior chamfer cut, and the anterior chamfer cut. The collateral ligaments were protected during the entire process. The cutting block was then removed. Any remaining bone and osteophytes were removed from the femur with a Ronguer. The femoral canal was plugged with autologous bone. Attention was then directed to the tibia. The remaining ACL was removed with a Ronguer, and the tibia was then gently subluxed forward with a large bent knee retractor. Any remaining menisci were excised. The posterior lateral corner was cauterized in order to coagulate the lateral geniculate artery. The patient specific guide for the tibia was then placed and was held in place with pins. Pinholes were then placed for rotation of the tibial component as well. Proximal tibia was then cut and sized. The femoral trial was placed. A narrow saw blade was then used to remove the anterior intracondylar femoral bone. The CR notch trial was then placed. The tibial trial was placed with the appropriate-sized insert. The knee was able to fully extend and flex to 130 and was stable throughout all range of motion. The knee was then extended and the patella was everted. Patella was then measured, and then using an osteotomy guide, the patella was cut at the appropriate level. The patella was then measured and drilled and the patella trial was then placed. The knee was then taken through range of motion with the patella trial and the patella tracked normally using the no thumbs technique.. The knee was then extended patella trial was then removed and the patella was everted. Knee was then flexed and lug holes were drilled through the femoral trial and the femoral trial was then removed. The tibial was then re-exposed, and the tibial broach guide was then pinned in place after it was set for the appropriate rotation to allow for the most coverage without overhang. The tibia was then reamed and broached. The cut surfaces of bone were then irrigated with pulsatile lavage. The knee was also irrigated with Irrisept solution. The components were then opened, the cement was mixed. Cement was placed on the backside of the femoral, tibial, and patellar components. Cement was then applied to the tibial surface and pressurized into the surface using finger pressurization technique. The tibial component was then applied and excess cement was removed after it was impacted securely noted to be flush with the cut surface. In similar fashion, the cement was applied to the cut femoral surface, pressurized and using finger pressurization the component was impacted in place. Excess cement was removed. The polyethylene spacer was then implanted and locked into position. Patellar component was then applied in a similar technique and the patellar clamp was used to hold patella in place while the cement hardened. The knee was held in full extension while the cement hardened. Once the cement had fully hardened, the knee was reinspected. Any other cement extrusion was removed the final range of motion testing showed range of motion from 0-130 with excellent stability, both medial and laterally and appropriate alignment of the leg. Patella tracked normally[default value] After the cemented hardened, the tourniquet was released and hemostasis was obtained. A second gram of transexamic acid was given intravenously. The knee was again irrigated. The knee was again taken through range of motion and found to be stable throughout all range of motion of 0-130, and the patella tracked normally. The fascia was then closed with 0 Vicryl followed by #2 strata fix suture. The subcutaneous tissue was closed with 3-0 Vicryl and 3-0 strata fix. Exofin glue was used for the skin and placed with the knee in flexion. After the glue had dried, and Optafoam silver impregnated dressing was applied. A lightly compressive dressing was applied using web roll and Roman wrap. Patient was then transferred to the stretcher and taken to recovery room in stable condition. Sponge and needle counts were correct. The topographical field assistant GENOVEVA Ziegler was required due the complexity surgery and the need for a skilled surgical appliances salesperson. She assisted in positioning, draping, retraction, and closure of the wound.
[2022-12-24] MEDS ORDERED: LACTATED RINGERS 1,000 ML IV ONE (12:37)
[2022-12-24] MEDS ORDERED: ROPIVACAINE 1,100 MG, SODIUM CHLORIDE 0.9% 500 ML 330 ML, EMPTY PAIN BALL 1 EACH MISCELLANE PRN ×2 (13:27)
--- NOTE | 2022-12-24 13:39 | XR ---
EXAMINATION TYPE: XR knee limited RT DATE OF EXAM: 12/24/2022 CLINICAL HISTORY: Postoperative evaluation Two views of the right knee are submitted. Identified are changes of total knee arthroplasty with femoral and tibial components appearing well seated. Postsurgical soft tissue changes are noted. Alignment is anatomic.
[2022-12-24 14:08] LABS: Glucose,Whole Blood 167 mg/dL (70-110)
[2022-12-24] MEDS: SODIUM CHLORIDE 0.9% 1,000 ML IV SCH ×2 (16:45→21:39)
[2022-12-24 16:50] LABS: Glucose,Whole Blood 255 mg/dL (70-110)
[2022-12-24] MEDS ORDERED: ALBUTEROL NEBULIZED 2.5 MG/3 ML INHALATION PRN (16:53)
[2022-12-24] MEDS ORDERED: DEXTROSE 50% SYRINGE 50 ML IVP PRN ×4 (16:54→16:55)
[2022-12-24] MEDS: INSULIN ASPART (NovoLOG) 100 UNIT/ML VIAL SQ SCH ×2 (18:03→21:08)
[2022-12-24] MEDS: ASPIRIN 325 MG TAB PO SCH (20:20)
[2022-12-24 20:39] LABS: Glucose,Whole Blood 343 mg/dL (70-110)
[2022-12-24] MEDS ORDERED: SENNOSIDES-DOCUSATE SODIUM 1 EACH TAB PO SCH (21:00)
[2022-12-24] MEDS ORDERED: LATANOPROST 0.005% OPHTH DROPS 2.5 ML BTL RIGHT EYE SCH (21:00)
[2022-12-24] MEDS: INSULIN DETEMIR (LEVEMIR) 100 UNIT/ML SYR SQ SCH (21:08)
[2022-12-24 22:52] LABS: Glucose,Whole Blood 250 mg/dL (70-110)
[2022-12-25] MEDS: LACTATED RINGERS 1,000 ML IV SCH (00:56)
[2022-12-25 06:11] LABS: Glucose,Whole Blood 225 mg/dL (70-110)
--- NOTE | 2022-12-25 06:25 | P.ANPRN ---
Procedure Note - Anesthesia - Nerve Block Performed Right Adductor Canal Single Time Out Performed: Yes Date of Procedure: 12/24/22 Procedure Start Time: : Procedure Stop Time: :39 Location of Patient: PreOp Indication: Acute Post-Operative Pain, Requested by Surgeon Sedation Type: Sedate with meaningful contact maintained Preparation: Sterile Prep Position: Supine Catheter: Indwelling Needle Types: Pajunk Needle Gauge: 21 Ultrasound used to visualize needle placement: Yes Ultrasound used to observe medication spread: Yes Blood Aspirated: No Pain Paresthesia on Injection Noted: No Resistance on Injection: Normal Image Stored and Saved: Yes Events: Uneventful and Well Tolerated (Ropivacaine 0.5% 20 mL plus dexamethasone 4 mg)
--- NOTE | 2022-12-25 06:26 | P.ANPRN ---
Procedure Note - Anesthesia - Nerve Block Performed Right [place] Single Time Out Performed: Yes Date of Procedure: 12/24/22 Procedure Start Time: 10:40 Procedure Stop Time: 10:44 Location of Patient: PreOp Indication: Acute Post-Operative Pain, Requested by Surgeon Sedation Type: Sedate with meaningful contact maintained Preparation: Sterile Prep Position: Supine Needle Types: Pajunk Needle Gauge: 21 Ultrasound used to visualize needle placement: Yes Ultrasound used to observe medication spread: Yes Blood Aspirated: No Pain Paresthesia on Injection Noted: No Resistance on Injection: Normal Image Stored and Saved: Yes Events: Uneventful and Well Tolerated (Ropivacaine 0.5% 20 mL plus dexamethasone 4 mg)
[2022-12-25] MEDS ORDERED: LEVOTHYROXINE 137 MCG TAB PO SCH (06:30)
[2022-12-25] MEDS: INSULIN DETEMIR (LEVEMIR) 100 UNIT/ML SYR SQ SCH (06:37)
[2022-12-25] MEDS: INSULIN ASPART (NovoLOG) 100 UNIT/ML VIAL SQ SCH ×2 (06:37→12:08)
--- NOTE | 2022-12-25 06:40 | P.PN ---
Progress Note - Text 12/25/22 612am 77-year-old status post total knee replacement. Patient seen and evaluated for postop pain control, patient has an On-Q pump with solution running at 8 mL an hour. Patient has a VAS of 4. Dressing is clean dry and intact. Plan to continue On-Q pump infusion
[2022-12-25 07:36] VITALS: BP 157/85; PULSE 73; RESP 18; TEMP 98.4
[2022-12-25] MEDS: ASPIRIN 325 MG TAB PO SCH (08:13)
[2022-12-25 09:00] LABS: Basophils # (A) 0.02 X 10*3/uL (0.00-0.10); Basophils % (A) 0.2 %; Eosinophils # (A) 0 X 10*3/uL (0.04-0.35); Eosinophils % (A) 0 %; HCT 34.9 % (39.6-50.0); HGB 10.6 g/dL (13.0-17.0); Immature Grans, Automated 0.4 %; MCH 25.2 pg (27.0-32.0); MCHC 30.4 g/dL (32.0-37.0); MCV 83.1 fL (80.0-97.0); Mean Platelet Volume 10.1 fL (9.5-12.2); Monocytes # (A) 1.05 X 10*3/uL (0.20-1.00); Monocytes % (A) 9.2 %; NRBC Per 100 WBC 0 /100 WBCS (0.0-0.0); Neutrophils # (A) 9.49 X 10*3/uL (1.80-7.70); Neutrophils % (A) 83.2 %; Platelet Count 272 X 10*3/uL (140-440); RDW 14.2 % (11.5-14.5); WBC 11.41 X 10*3/uL (4.50-10.00)
[2022-12-25] MEDS ORDERED: PANTOPRAZOLE 40 MG TABLET PO SCH (09:00)
[2022-12-25] MEDS ORDERED: MAGNESIUM OXIDE 400 MG TAB PO SCH (09:00)
[2022-12-25] MEDS ORDERED: SERTRALINE 25 MG TAB PO SCH (09:00)
[2022-12-25] MEDS ORDERED: LORATADINE 10 MG TAB PO SCH (09:00)
[2022-12-25 11:08] LABS: Glucose,Whole Blood 174 mg/dL (70-110)
[2022-12-25] MEDS ORDERED: fentaNYL (PF) 50 MCG/ML 2 ML AMP ONE (11:19)
[2022-12-25] MEDS ORDERED: DEXAMETHASONE SOD PHOSPHATE 4 MG/ML 1 ML VIAL ONE (11:19)
[2022-12-25] MEDS ORDERED: ROPIVACAINE 5 MG/ML 30 ML VIAL ONE (11:19)
[2022-12-25] MEDS ORDERED: TRANEXAMIC ACID IN NACL,ISO-OS 1,000 MG/100 ML BAG ONE (11:19)
[2022-12-25] MEDS ORDERED: PHENYLEPHRINE-0.9% NACL SYG 1,000 MCG/10 ML SYRINGE ONE (11:19)
[2022-12-25] MEDS ORDERED: PROPOFOL 10 MG/ML 20 ML VIAL IV ONE (11:19)
--- NOTE | 2022-12-25 11:21 | P.DS ---
Providers Date of admission: 12/25/22 07:25 Expected date of discharge: 12/25/22 Attending physician: Nate Lowery Consults: 12/24/22 09:15 Consult Physician Routine Consulting Provider: Aj Astudillo Consult Reason/Comments: medical management Do you want consulting provider notified?: Yes Primary care physician: Lloyd Romano - Discharge Diagnosis(es) (1) Primary localized osteoarthritis of right knee Current Visit: Yes Status: Acute (2) Status post total right knee replacement Current Visit: Yes Status: Acute Hospital Course: This is a 77-year-old male who was last seen with complaint of continued right knee pain. The patient has a known history of degenerative arthritis of the right knee and presents to discuss surgical options. After discussion and consideration the patient elects to proceed with total right knee arthroplasty. The patient is seen preoperatively by his primary care physician and cleared for surgery. The patient is admitted to [facility] for total right knee arthroplasty. The procedures performed without complication or sequelae. Patient is doing well postoperatively. Vital signs are stable at discharge. Labs are stable at discharge. the patient is ambulating well with walker with minimal assistance. The patient is discharged to home on postop day #1 pending medical clearance. Please see orders and refer to the med rec for accurate list of medications. Patient Condition at Discharge: Good Plan - Discharge Summary Discharge Rx Participant: Yes New Discharge Prescriptions: New Sennosides [Senokot] 2 tab PO DAILY PRN #60 tablet PRN Reason: Constipation No Action metFORMIN HCL 500 mg PO QAM metFORMIN HCL 1,000 mg PO W/SUPPER Niacin 500 mg PO DAILY Levothyroxine Sodium [Synthroid] 137 mcg PO QAM Enalapril [Vasotec] 20 mg PO BID Aspirin 81 mg PO DAILY Omeprazole [PriLOSEC] 20 mg PO DAILY Magnesium 500 mg PO DAILY Loratadine [Claritin] 10 mg PO DAILY Albuterol Inhaler [Ventolin Hfa Inhaler] 2 puff INHALATION RT-Q4H PRN PRN Reason: Shortness Of Breath Insulin Aspart [NovoLOG Flexpen] 0 units SQ QID Insulin NPH Human Isophane [NovoLIN N] 0 unit SQ HS Sertraline [Zoloft] 25 mg PO DAILY Latanoprost/Pf [Latanoprost 0.005% Eye Drop] 1 drop RIGHT EYE HS Cholecalciferol (Vitamin D3) [Vitamin D3] 50,000 units PO WEEKLY Cyclobenzaprine [Flexeril] 10 mg PO TID oxyCODONE HCL/ACETAMINOPHEN [Percocet 7.5-325 mg] 1 tab PO Q8H PRN PRN Reason: Pain predniSONE 10 mg PO DAILY Niacin 500 mg PO ONCE Discharge Medication List Aspirin 81 mg PO DAILY 05/31/15 [History] Enalapril [Vasotec] 20 mg PO BID 05/31/15 [History] Levothyroxine Sodium [Synthroid] 137 mcg PO QAM 05/31/15 [History] Magnesium 500 mg PO DAILY 05/31/15 [History] Niacin 500 mg PO DAILY 05/31/15 [History] Omeprazole [PriLOSEC] 20 mg PO DAILY 05/31/15 [History] metFORMIN HCL 1,000 mg PO W/SUPPER 05/31/15 [History] metFORMIN HCL 500 mg PO QAM 05/31/15 [History] Loratadine [Claritin] 10 mg PO DAILY 06/07/15 [History] Albuterol Inhaler [Ventolin Hfa Inhaler] 2 puff INHALATION RT-Q4H PRN 10/12/18 [History] Insulin Aspart [NovoLOG Flexpen] 0 units SQ QID 10/12/18 [History] Insulin NPH Human Isophane [NovoLIN N] 0 unit SQ HS 10/12/18 [History] Sertraline [Zoloft] 25 mg PO DAILY 10/12/18 [History] Cholecalciferol (Vitamin D3) [Vitamin D3] 50,000 units PO WEEKLY 03/14/20 [History] Latanoprost/Pf [Latanoprost 0.005% Eye Drop] 1 drop RIGHT EYE HS 03/14/20 [History] Cyclobenzaprine [Flexeril] 10 mg PO TID 12/19/22 [History] oxyCODONE HCL/ACETAMINOPHEN [Percocet 7.5-325 mg] 1 tab PO Q8H PRN 12/19/22 [History] predniSONE 10 mg PO DAILY 12/19/22 [History] Niacin 500 mg PO ONCE 12/24/22 [History] Sennosides [Senokot] 2 tab PO DAILY PRN #60 tablet 12/24/22 [Rx] Follow up Appointment(s)/Referral(s): [facility] [NON-STAFF] - As Needed (Please call for Continuous Passive Motion knee machine if you change your mind once home.) [facility], [NON-STAFF] - As Needed Activity/Diet/Wound Care/Special Instructions: Weightbearing as tolerated with a walker. CPM 5-6h daily as tolerated. Leave dressing intact. Dressing may be removed by home care nurse or by patient in 7 days. Then change dressing twice daily until follow up. May shower with initial dressing intact and after removal. If dressing become saturated, please remove. Recommend use of compression stockings daily until follow up to help prevent swelling and blood clots. May remove at night before sleeping. Please take aspirin 325mg twice daily for 30 days to prevent blood clots. Pain management per primary care physician. Please follow up with [facility] and call with any questions or concerns, .
[2022-12-25] MEDS ORDERED: lisinopriL 20 MG TAB PO SCH (12:00)
[2022-12-25] MEDS: SODIUM CHLORIDE 0.9% 1,000 ML IV SCH (12:07)
--- NOTE | 2022-12-25 12:47 | P.CONS ---
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 Patient is admitted for elective right knee total arthroplasty. We are asked to see patient in consultation. Patient denies shortness of breath, denies chest pain. He is tolerating diet. He is up in the chair, and has worked with physical therapy. He reports no pain to the right knee today. He follows at [facility] for his chronic pain and is currently maintained on oral prednisone daily which is continued. Patient is a diabetic and maintained on sliding scale insulin and scheduled insulin at bedtime, his A1C is 7.1 and recommend to continue home insulin regimen. Recommend to follow up with PCP for further management on discharge. Patient is recommended by orthopedics for aspirin 325 mg twice a day for 30 days. Patient is postoperative day #1 total right knee. He is cleared medically for discharge. REVIEW OF SYSTEMS: CONSTITUTIONAL: No fever, no malaise, no fatigue. HEENT: No recent visual problems or hearing problems. Denied any sore throat. CARDIOVASCULAR: No chest pain, orthopnea, PND, no palpitations, no syncope. PULMONARY: No shortness of breath, no cough, no hemoptysis. GASTROINTESTINAL: No diarrhea, no nausea, no vomiting, no abdominal pain. NEUROLOGICAL: No headaches, no weakness, no numbness. HEMATOLOGICAL: Denies any bleeding or petechiae. GENITOURINARY: Denies any burning micturition, frequency, or urgency. MUSCULOSKELETAL/RHEUMATOLOGICAL: Denies any joint pain, swelling, or any muscle pain. ENDOCRINE: Denies any polyuria or polydipsia. The rest of the 14-point review of systems is negative. PHYSICAL EXAMINATION: GENERAL: The patient is alert and oriented x3, not in any acute distress. Well developed, well nourished. HEENT: Pupils are round and equally reacting to light. EOMI. No scleral icterus. No conjunctival pallor. Normocephalic, atraumatic. No pharyngeal erythema. No thyromegaly. CARDIOVASCULAR: S1 and S2 present. No murmurs, rubs, or gallops. PULMONARY: Chest is clear to auscultation, no wheezing or crackles. ABDOMEN: Soft, nontender, nondistended, normoactive bowel sounds. No palpable organomegaly. MUSCULOSKELETAL: No joint swelling or deformity. EXTREMITIES: No cyanosis, clubbing, or pedal edema. Postoperative right knee min imal swelling NEUROLOGICAL: Gross neurological examination did not reveal any focal deficits. SKIN: No rashes. 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 Diabetes Mellitus type 2 with hyperglycemia Hypertension History hyperlipidemia History of D.I.S.H Rheumatoid arthritis maintained on oral steroids History of hyperlipidemia GI Prophylaxis DVT Prophylaxis No Mechanical Intubation Plan Resume appropriate home medications Continue same insulin regimen Patient is cleared medically for discharge home with home physical therapy Continue aspirin 325 BID as per orthopedics for 30 days follow up with orthopedics on discharge for further recommendations When stopping aspirin 325 after 30 days resume aspirin 81 mg daily Follow up with your primary provider for further blood glucose management. Thank you for this consultation The impression and plan of care has been dictated by Brenda Singh, Nurse Practitioner as directed. Dr. Carl MD I have performed a history and physical examination and medical decision making of this patient, discussed the same with the dictator, and agree with the dictators assessment and plan as written, documented as a scribe. Based on total visit time, I have performed more than 50% of this visit. Past Medical History Past Medical History: Diabetes Mellitus, Eye Disorder, GERD/Reflux, Hyperlipi demia, Hypertension, Musculoskeletal Disorder, Thyroid Disorder Additional Past Medical History / Comment(s): HX PANCREATITIS, KIDNEY STONES , D.I.S.H. ARTHRITIS. , GLAUCOMA, TREMORS, ENVIRONMENTAL ALLERGIES, colon polyps glaucoma History of Any Multi-Drug Resistant Organisms: MRSA Year Discovered:: 11/2022 MDRO Source:: nasal swab Past Surgical History: Cholecystectomy, Joint Replacement, Orthopedic Surgery Additional Past Surgical History / Comment(s): Cataract ., rotator cuff repair. ,nose fx with surgery, TOTAL LEFT KNEE, TOTAL RIGHT HIP. Past Anesthesia/Blood Transfusion Reactions: No Reported Reaction Additional Past Anesthesia/Blood Transfusion Reaction / Comm: . Past Psychological History: Anxiety Additional Psychological History / Comment(s): . Smoking Status: Never smoker Past Alcohol Use History: None Reported Additional Past Alcohol Use History / Comment(s): QUIT SMOKING AGE 31 . Past Drug Use History: None Reported - Past Family History Father Family Medical History: COPD Additional Family Medical History / Comment(s): EMPHYSEMA Mother Family Medical History: Rheumatoid Arthritis (RA) Medications and Allergies Home Medications Medication Instructions Recorded Confirmed Type Aspirin 81 mg PO DAILY 05/31/15 12/19/22 History Enalapril [Vasotec] 20 mg PO BID 05/31/15 12/19/22 History Levothyroxine Sodium [Synthroid] 137 mcg PO QAM 05/31/15 12/19/22 History Magnesium 500 mg PO DAILY 05/31/15 12/19/22 History Niacin 500 mg PO DAILY 05/31/15 12/19/22 History Omeprazole [PriLOSEC] 20 mg PO DAILY 05/31/15 12/19/22 History metFORMIN HCL 1,000 mg PO W/SUPPER 05/31/15 12/19/22 History metFORMIN HCL 500 mg PO QAM 05/31/15 12/19/22 History Loratadine [Claritin] 10 mg PO DAILY 06/07/15 12/19/22 History Albuterol Inhaler [Ventolin Hfa 2 puff INHALATION RT-Q4H PRN 10/12/18 12/19/22 History Inhaler] Insulin Aspart [NovoLOG Flexpen] 0 units SQ QID 10/12/18 12/19/22 History Insulin NPH Human Isophane 0 unit SQ HS 10/12/18 12/19/22 History [NovoLIN N] Sertraline [Zoloft] 25 mg PO DAILY 10/12/18 12/19/22 History Cholecalciferol (Vitamin D3) 50,000 units PO WEEKLY 03/14/20 12/24/22 History [Vitamin D3] Latanoprost/Pf [Latanoprost 0.005% 1 drop RIGHT EYE HS 03/14/20 12/19/22 History Eye Drop] Cyclobenzaprine [Flexeril] 10 mg PO TID 12/19/22 12/19/22 History oxyCODONE HCL/ACETAMINOPHEN 1 tab PO Q8H PRN 12/19/22 12/19/22 History [Percocet 7.5-325 mg] predniSONE 10 mg PO DAILY 12/19/22 12/24/22 History Niacin 500 mg PO ONCE 12/24/22 12/24/22 History Sennosides [Senokot] 2 tab PO DAILY PRN #60 tablet 12/24/22 Rx Allergies Allergy/AdvReac Type Severity Reaction Status Date / Time [id number] Reductase Allergy muscle Verified 12/24/22 09:34 Inhibitor pain and [Bbzvdww-Mdq-She Reductase cramping Inhibitor] Sulfa (Sulfonamide Allergy Swelling Verified 12/24/22 09:34 Antibiotics) Physical Exam Vitals: Vital Signs Temp Pulse Pulse Resp BP Pulse Ox 12/25/22 07:05 98.4 F 73 18 157/85 99 12/25/22 01:41 98.1 F 84 16 148/81 97 12/24/22 20:50 88 12/24/22 20:36 84 12/24/22 19:07 98.0 F 84 15 151/79 97 12/24/22 16:08 97.7 F 62 18 138/78 97 12/24/22 15:54 69 16 108/59 95 12/24/22 15:00 68 16 107/56 92 L 12/24/22 14:30 76 16 109/55 92 L 12/24/22 14:00 67 16 98/58 92 L 12/24/22 13:45 73 16 115/58 92 L 12/24/22 13:30 70 16 108/62 92 L 12/24/22 13:15 67 16 101/58 98 12/24/22 13:03 97 F L 71 16 102/55 96 12/24/22 11:04 81 16 140/75 99 12/24/22 10:51 83 16 137/76 100 12/24/22 10:23 84 16 148/76 100 Intake and Output 12/24/22 12/25/22 12/25/22 22:59 06:59 14:59 Intake Total 480 Output Total 1300 300 Balance -820 -300 Intake: Oral 480 Output: Urine 1300 300 Other: # Voids 0 2 1 Weight 89 kg Results CBC & Chem 7: 12/25/22 04:46 Labs: Abnormal Lab Results - Last 24 Hours (Table) 12/24/22 12/24/22 12/24/22 Range/Units 14:07 16:49 18:57 WBC (4.50-10.00) X 10*3/uL RBC (4.40-5.60) X 10*6/uL Hgb (13.0-17.0) g/dL Hct (39.6-50.0) % MCH (27.0-32.0) pg MCHC (32.0-37.0) g/dL Immature Gran # (0.00-0.04) X 10*3/uL Neutrophils # (1.80-7.70) X 10*3/uL Lymphocytes # (0.90-5.00) X 10*3/uL Monocytes # (0.20-1.00) X 10*3/uL Eosinophils # (0.04-0.35) X 10*3/uL POC Glucose (mg/dL) 167 H 255 H (70-110) mg/dL Hemoglobin A1c 7.1 H (0.0-6.0) % 12/24/22 12/24/22 12/25/22 Range/Units 20:37 22:45 04:46 WBC 11.41 H (4.50-10.00) X 10*3/uL RBC 4.20 L (4.40-5.60) X 10*6/uL Hgb 10.6 L (13.0-17.0) g/dL Hct 34.9 L (39.6-50.0) % MCH 25.2 L (27.0-32.0) pg MCHC 30.4 L (32.0-37.0) g/dL Immature Gran # 0.05 H (0.00-0.04) X 10*3/uL Neutrophils # 9.49 H (1.80-7.70) X 10*3/uL Lymphocytes # 0.80 L (0.90-5.00) X 10*3/uL Monocytes # 1.05 H (0.20-1.00) X 10*3/uL Eosinophils # 0 L (0.04-0.35) X 10*3/uL POC Glucose (mg/dL) 343 H 250 H (70-110) mg/dL Hemoglobin A1c (0.0-6.0) % 12/25/22 Range/Units 06:09 WBC (4.50-10.00) X 10*3/uL RBC (4.40-5.60) X 10*6/uL Hgb (13.0-17.0) g/dL Hct (39.6-50.0) % MCH (27.0-32.0) pg MCHC (32.0-37.0) g/dL Immature Gran # (0.00-0.04) X 10*3/uL Neutrophils # (1.80-7.70) X 10*3/uL Lymphocytes # (0.90-5.00) X 10*3/uL Monocytes # (0.20-1.00) X 10*3/uL Eosinophils # (0.04-0.35) X 10*3/uL POC Glucose (mg/dL) 225 H (70-110) mg/dL Hemoglobin A1c (0.0-6.0) % Assessment and Plan Time with Patient: Less than 30
[2022-12-26] MEDS ORDERED: predniSONE 10 MG TAB PO SCH (12:00)
[2022-12-29] MEDS ORDERED: ERGOCALCIFEROL 1,250 MCG (50,000 IU) CAPSULE PO SCH (09:00)
[2022-12-31] MEDS ORDERED: CHOLECALCIFEROL 25 MCG (1000 IU) TABLET PO SCH (09:00)
== END 2022-12-25 13:34 | disposition home health service (06) ==
LOC: OR 09:13 → 4SSUR 13:05 → OR 12-25 07:25
PROVIDERS: ADMIT Orthopaedic Surgery; ATTEND Orthopaedic Surgery
DX: M17.11 Unilateral primary osteoarthritis, right knee (principal); M25.761 Osteophyte, right knee; G89.18 Other acute postprocedural pain; E11.65 Type 2 diabetes mellitus with hyperglycemia; I10 Essential (primary) hypertension; E78.5 Hyperlipidemia, unspecified; M06.9 Rheumatoid arthritis, unspecified; Z79.52 Long term (current) use of systemic steroids; Z79.4 Long term (current) use of insulin
CPT/HCPCS: 94640; 97161; 64999; 64448; 76942; 85025; 88300; 83036; 73560; 27447; G0378; C1713; C1776; C1751; J2250; J3370; J1100 ×2; J1720; J0690 ×3; J2405; J3010; J2795; J2370; J2704

== ENCOUNTER 2024-06-17 09:41 | Emergency (ER) | payer MEDICARE ==
[2024-06-17 09:49] VITALS: TEMP 97.7
[2024-06-17] MEDS: SODIUM CHLORIDE 0.9% 1,000 ML IV STA ×2 (11:04→12:39)
[2024-06-17 11:13] LABS: Basophils % (A) 0 %; Eosinophils % (A) 0 %; HCT 35.6 % (39.0-53.0); HGB 11.4 gm/dL (13.0-17.5); Lymphocytes # (A) 0.9 k/uL (1.0-4.8); Lymphocytes % (A) 8 %; MCH 26.9 pg (25.0-35.0); MCHC 32.1 g/dL (31.0-37.0); MCV 83.7 fL (80.0-100.0); Mean Platelet Volume 7.1; Monocytes # (A) 0.5 k/uL (0-1.0); Monocytes % (A) 5 %; Neutrophils # (A) 9.1 k/uL (1.3-7.7); Neutrophils % (A) 85 %; Platelet Count 293 k/uL (150-450); RBC 4.26 m/uL (4.30-5.90); RDW 15.1 % (11.5-15.5); WBC 10.6 k/uL (3.8-10.6)
[2024-06-17 11:37] LABS: INR 1.1 (<1.2); Partial Thromboplastin Time 27.8 sec (22.0-30.0); Prothrombin Time 11.5 sec (10.0-12.5)
[2024-06-17 11:40] LABS: ALT 24 U/L (4-49); AST 25 U/L (17-59); African American GFR (CKD) >90 (>60 ml/min/1.73 sqM); Albumin 3.6 g/dL (3.5-5.0); Alkaline Phosphatase 68 U/L (38-126); Amylase 45 U/L (30-110); Anion Gap 10 mmol/L; Blood Urea Nitrogen 27 mg/dL (9-20); Calcium 9.7 mg/dL (8.4-10.2); Carbon Dioxide 26 mmol/L (22-30); Chloride 101 mmol/L (98-107); Glucose 84 mg/dL (74-99); Lipase 37 U/L (23-300); Non-African American GFR(CKD) 84 (>60 ml/min/1.73 sqM); Potassium 4.5 mmol/L (3.5-5.1); Sodium 137 mmol/L (137-145); Total Bilirubin 0.5 mg/dL (0.2-1.3); Total Protein 6.2 g/dL (6.3-8.2)
--- NOTE | 2024-06-17 12:36 | CT ---
EXAMINATION TYPE: CT abdomen pelvis w con DATE OF EXAM: 06/17/2024 COMPARISON: 05/31/2015 HISTORY: abdominal pain, anterior abd wall drainage CT DLP: 1670.1 mGycm Automated exposure control for dose reduction was used. TECHNIQUE: Helical acquisition of images was performed from the lung bases through the pelvis. CONTRAST: Performed without Oral Contrast and with IV Contrast, patient injected with 100 ml mL of Isovue 300. FINDINGS: The lung bases are clear. There is surgical absence of the gallbladder. There is a 13.6 mm density/calculus in the second porti on of the duodenum but there is no obstruction. The bowel loops are normal in caliber. There is no fr ee air or free intraperitoneal fluid. There is diverticulosis but no CT evidence of diverticulitis. There is no focal mass or organomegaly involving the liver, pancreas, spleen or adrenal glands. The p ancreas is age atrophic. There is no solid renal mass or hydronephrosis. There are nonobstructing renal calculi. The right paul al calculus is 9 mm left renal calculus 5.6 mm. The left kidney is mildly atrophic. Caliber of the abdominal aorta is normal and there is no retroperitoneal adenopathy or hemorrhage. There is no pelvic mass, free fluid, abscess or adenopathy. There is mild to moderate prostatic hyper trophy. There is a right hip prosthesis otherwise the osseous structures are intact. IMPRESSION: 1. 13.6 mm rounded density/calculus in the second portion of the duodenum with no evidence of gastric outlet obstruction. 2. Surgical absence of the gallbladder. 3. Mild/moderate prostatic hypertrophy. 4. Bilateral nonobstructing renal calcifications as described above [facility], , 06/17/2024 12:34 PM
[2024-06-17 12:43] LABS: Appearance,Urine Clear (Clear); Bacteria,Urine Rare /hpf; Bilirubin,Urine Negative (Negative); Blood,Urine Trace (Negative); Color,Urine Light Yellow; Glucose,Urine (UA) 3+ (Negative); Hyaline Casts,Urine 4 /lpf (0-2); Ketones,Urine 1+ (Negative); Leukocyte Esterase,Urine Negative (Negative); Mucus,Urine Rare /hpf; Nitrite,Urine Negative (Negative); PH, Urine 5.5 (5.0-8.0); Protein,Urine Trace (Negative); RBC,Urine 2 /hpf (0-5); Specific Gravity,Urine 1.025 (1.001-1.035); Squamous Epithelial Cell,Urine <1 /hpf (0-4); Urobilinogen,Urine <2.0 mg/dL (<2.0); WBC,Urine 3 /hpf (0-5)
--- NOTE | 2024-06-17 13:17 | ED ---
General Adult HPI - General Chief complaint: Recheck/Abnormal Lab/Rx Stated complaint: abn labs Time Seen by Provider: 06/17/24 10:20 Source: patient, RN notes reviewed, old records reviewed Mode of arrival: wheelchair Limitations: no limitations - History of Present Illness Initial comments: Patient is an 79-year-old male presents emergency department complaining of possible skin infection at the site of a nerve stimulator on his left anterior abdominal wall. He has been having some serous drainage from the site. Some increased erythema around the site as well. It was implanted over a month ago. Saw PCP who instructed him to come to the ER over concern for elevated white blood cell count. Patient is a history of diabetes, hypertension, hyperlipidemia. Also has a history of chronic tremor causing him to constantly move. Patient has no other acute complaints at this time. Sugars have been slightly more elevated at home. Presents for further evaluation. Presents with his daughter who is the primary historian. - Related Data Home Medications Medication Instructions Recorded Confirmed Enalapril [Vasotec] 20 mg PO BID-W/MEALS 05/31/15 06/17/24 Levothyroxine Sodium [Synthroid] 137 mcg PO DAILY 05/31/15 06/17/24 Niacin 500 mg PO DAILY@1200 05/31/15 06/17/24 Omeprazole [PriLOSEC] 20 mg PO BID@1200,1800 05/31/15 06/17/24 metFORMIN HCL 500 mg PO TID 05/31/15 06/17/24 Loratadine [Claritin] 10 mg PO DAILY 06/07/15 06/17/24 Insulin NPH Human Isophane See Protocol SQ HS 10/12/18 06/17/24 [NovoLIN N] oxyCODONE HCL/ACETAMINOPHEN 1 tab PO TID PRN 12/19/22 06/17/24 [Percocet 7.5-325 mg] Acetaminophen [Tylenol Arthritis] 650 - 1,300 mg PO Q8H PRN 06/17/24 06/17/24 Aspirin EC [Ecotrin Low Dose] 81 mg PO DAILY 06/17/24 06/17/24 Ergocalciferol [Vitamin D2 (1250 1,250 mcg PO SAMUELS 06/17/24 06/17/24 Mcg = [id number] Iu)] Famotidine [Pepcid] 20 mg PO BID@1200,1800 06/17/24 06/17/24 Insulin Aspart [NovoLOG Flexpen] See Protocol SQ AC-TID 06/17/24 06/17/24 Magnesium Citrate and Oxide 250 mg PO BID@1200,1800 06/17/24 06/17/24 [Magnesium] Patient Own Pump 0 bag 06/17/24 Sertraline [Zoloft] 50 mg PO DAILY 06/17/24 06/17/24 methocarbamoL [Robaxin-750] 750 mg PO BID@1200,2100 06/17/24 06/17/24 Previous Rx's Medication Instructions Recorded clindamycin HCL 300 mg PO Q8HR 5 Days #15 cap 06/17/24 Allergies Allergy/AdvReac Type Severity Reaction Status Date / Time Sulfa (Sulfonamide Allergy Swelling/Ra Verified 06/17/24 13:37 Antibiotics) sh atorvastatin [From Lipitor] AdvReac Myositis Verified 06/17/24 13:37 rosuvastatin [From Crestor] AdvReac Myositis Verified 06/17/24 13:37 simvastatin [From Zocor] AdvReac Myositis Verified 06/17/24 13:37 Rdrpwir-PBH-LsN Reductase AdvReac muscle Verified 06/17/24 13:37 Inhibitor pain and [Jemqnkt-Rvc-Lrx Reductase cramping Inhibitor] Review of Systems ROS Statement: Those systems with pertinent positive or pertinent negative responses have been documented in the HPI. Review of Systems: CONST: Denies fever EYES: Denies blurry vision ENT: Denies nasal congestion C/V: Denies Chest pain RESP: Denies shortness of breath GI: Denies abdominal pain : Denies dysuria SKIN: Denies rash. MSK: Denies joint pain. NEURO: Denies headache ROS Other: All systems not noted in ROS Statement are negative. Past Medical History Past Medical History: Diabetes Mellitus, GERD/Reflux, Hyperlipidemia, Hypertension, Musculoskeletal Disorder, Thyroid Disorder Additional Past Medical History / Comment(s): HX PANCREATITIS, KIDNEY STONES , D.I.S.H. ARTHRITIS. , GLAUCOMA, TREMORS, ENVIRONMENTAL ALLERGIES, HX COLON POLYPS, DIARRHEA, STATES POSITIVE BLOOD IN STOOL TEST. History of Any Multi-Drug Resistant Organisms: None Reported Date of last positivie culture/infection: 11/2022 MDRO Source:: nasal swab Past Surgical History: Cholecystectomy, Joint Replacement, Orthopedic Surgery Additional Past Surgical History / Comment(s): Cataract ., rotator cuff repair. ,nose fx with surgery, TOTAL LEFT KNEE, TOTAL RIGHT HIP. Past Anesthesia/Blood Transfusion Reactions: No Reported Reaction Additional Past Anesthesia/Blood Transfusion Reaction / Comment(s): . Past Psychological History: Anxiety Smoking Status: Never smoker Past Alcohol Use History: None Reported Past Drug Use History: None Reported - Past Family History Father Family Medical History: COPD Additional Family Medical History / Comment(s): EMPHYSEMA Mother Family Medical History: Rheumatoid Arthritis (RA) General Exam - General Exam Comments Initial Comments: General: Appears in no acute distress. HEAD: Normal with no signs of head trauma. EYES: PERRLA, EOMI, conjunctiva normal, no discharge. Pupils 3 mm and equal bilaterally. ENT: Hearing grossly intact, normal oropharynx. RESPIRATORY: Clear breath sounds bilaterally. No wheezes, rales, or rhonchi. C/V: Regular rate and rhythm. S1 and S2 auscultated, no edema, peripheral pulses 2+ and intact throughout ABD: Abd is soft, nontender, nondistended. No tenderness at the site of the stimulator insertion. There is a erythema surrounding the incision site. No significant drainage at this time. EXT: Normal range of motion, no obvious deformity SKIN: No rashes or lesions observed on exposed skin. NEURO: Alert and oriented x 4. No focal deficits. Limitations: no limitations Course Vital Signs 06/17/24 06/17/24 09:47 13:45 Temperature 97.7 F Pulse Rate 85 82 Respiratory 20 16 Rate Blood Pressure 132/82 136/73 O2 Sat by Pulse 96 99 Oximetry Medical Decision Making - Medical Decision Making Was pt. sent in by a medical professional or institution (, PA, WEAVER HAND, urgent care, hospital, or snf...) When possible be specific @ -No Did you speak to anyone other than the patient for history (EMS, parent, family, police, friend...)? What history was obtained from this source @ -No Did you review nursing and triage notes (agree or disagree)? Why? @ -I reviewed and agree with nursing and triage notes Were old charts reviewed (outside hosp., previous admission, EMS record, old EKG, old radiological studies, urgent care reports/EKG's, snf records)? Report findings @ -No old charts were reviewed Differential Diagnosis (chest pain, altered mental status, abdominal pain women, abdominal pain men, vaginal bleeding, weakness, fever, dyspnea, syncope, headache, dizziness, GI bleed, back pain, seizure, CVA, palpatations, mental health, musculoskeletal)? @ -Differential Abdominal Pain Men: Appendicitis, cholecystitis, diverticulosis, ischemic bowel, pancreatitis, hepatitis, UTI, gastroenteritis, AAA, incarcerated hernia, bowel obstruction, constipation, inflammatory bowel, hepatitis, peptic ulcer disease, splenic infarction, perforated viscus, testicular torsion, this is not meant to be an all-inclusive list EKG interpreted by me (3pts min.). @ -As above X-rays interpreted by me (1pt min.). @ -None done CT interpreted by me (1pt min.). @ -CT abdomen pelvis reveals a suspected calculus in the duodenum without any evidence of any obstruction. Patient has no gallbladder. No other obvious findings presently. U/S interpreted by me (1pt. min.). @ -None done What testing was considered but not performed or refused? (CT, X-rays, U/S, labs)? Why? @ -None What meds were considered but not given or refused? Why? @ -None Did you discuss the management of the patient with other professionals (professionals i.e. , PA, WE[employer]ER HAND, lab, RT, psych nurse, social service technician, germ drier, teacher, retail loan officer, briefcase sewer)? Give summary @ -No Was smoking cessation discussed for >3mins.? @ -No Was critical care preformed (if so, how long)? @ -No Were there social determinants of health that impacted care today? How? (Homelessness, low income, unemployed, alcoholism, drug addiction, transportation, low edu. Level, literacy, decrease access to med. care, intermediate, rehab)? @ -No Was there de-escalation of care discussed even if they declined (Discuss DNR or withdrawal of care, Hospice)? DNR status @ -No What co-morbidities impacted this encounter? (DM, HTN, Smoking, COPD, CAD, Cancer, CVA, ARF, Chemo, Hep., AIDS, mental health diagnosis, sleep apnea, morbid obesity)? @ -None Was patient admitted / discharged? Hospital course, mention meds given and route, prescriptions, significant lab abnormalities, going to OR and other pertinent info. @ -Patient presents with discharge from a recent surgical site on the abdominal wall. We will obtain general abdominal workup. Patient in agreement this plan. He has no symptoms at this time. He will be given IV fluids. Screen EKG showed no signs of acute ischemia. Laboratory studies shows no leukocytosis. Lactic acid is elevated to 3.6 however patient is chronically tremulous and he has no symptoms to suggest any form of severe infection such as sepsis. I do suspect this lactic acidosis is likely secondary to his chronic constant tremors. Labs otherwise are unremarkable. No evidence of infection. CT imaging reveals no evidence of infection either. There is an incidental finding of what may be a calculus located in the duodenum of unknown significance. Does not appear to be causing any form of bowel obstruction. I did the patient as well as daughter on the findings found on CT as well as blood work. They were in agreement with the assessment. Due to clinical findings concerning for mild cellulitis of the abdominal wall patient will be started on clindamycin. They were in agreement this plan. Strict return precautions discussed. I will provide the patient with a prescription for clindamycin. I instructed the patient to follow up with their PCP in the next 1-3 days . I explained that the patient should return to the emergency department if they experience any worsen ing symptoms. Strict return precautions were discussed with the patient. The patient expressed understanding of these instructions. I answered all questions that the patient had. The patient was discharged home in good condition with their prescriptions and follow up information. Undiagnosed new problem with uncertain prognosis? @ -No Drug Therapy requiring intensive monitoring for toxicity (Heparin, Nitro, Insulin, Cardizem)? @ -No Were any procedures done? @ -No Diagnosis/symptom? @ -Cellulitis Acute, or Chronic, or Acute on Chronic? @ -Acute Uncomplicated (without systemic symptoms) or Complicated (systemic symptoms)? @ -Uncomplicated Side effects of treatment? @ -No Exacerbation, Progression, or Severe Exacerbation? @ -No Poses a threat to life or bodily function? How? (Chest pain, USA, AR, pneumonia, PE, COPD, DKA, ARF, appy, cholecystitis, CVA, Diverticulitis, Homicidal, Samuels icidal, threat to staff... and all critical care pts) @ -Unlikely Diagnosis/symptom? @ -Lactic acidosis likely secondary to chronic tremors Acute, or Chronic, or Acute on Chronic? @ -Acute Uncomplicated (without systemic symptoms) or Complicated (systemic symptoms)? @ -Uncomplicated Side effects of treatment? @ -None Exacerbation, Progression, or Severe Exacerbation] @ -No Poses a threat to life or bodily function? @ -No - Lab Data Result diagrams: 06/17/24 10:29 06/17/24 10:29 Lab Results 06/17/24 06/17/24 06/17/24 Range/Units 10:29 10: 10:29 WBC 10.6 (3.8-10.6) k/uL RBC 4.26 L (4.30-5.90) m/uL Hgb 11.4 L (13.0-17.5) gm/dL Hct 35.6 L (39.0-53.0) % MCV 83.7 (80.0-100.0) fL MCH 26.9 (25.0-35.0) pg MCHC 32.1 (31.0-37.0) g/dL RDW 15.1 (11.5-15.5) % Plt Count 293 (150-450) k/uL MPV 7.1 Neutrophils % 85 % Lymphocytes % 8 % Monocytes % 5 % Eosinophils % 0 % Basophils % 0 % Neutrophils # 9.1 H (1.3-7.7) k/uL Lymphocytes # 0.9 L (1.0-4.8) k/uL Monocytes # 0.5 (0-1.0) k/uL Eosinophils # 0.0 (0-0.7) k/uL Basophils # 0.0 (0-0.2) k/uL PT 11.5 (10.0-12.5) sec INR 1.1 (<1.2) APTT 27.8 (22.0-30.0) sec Sodium 137 (137-145) mmol/L Potassium 4.5 (3.5-5.1) mmol/L Chloride 101 (98-107) mmol/L Carbon Dioxide 26 (22-30) mmol/L Anion Gap 10 mmol/L BUN 27 H (9-20) mg/dL Creatinine 0.82 (0.66-1.25) mg/dL Est GFR (CKD-EPI)AfAm >90 (>60 ml/min/1.73 sqM) Est GFR (CKD-EPI)NonAf 84 (>60 ml/min/1.73 sqM) Glucose 84 (74-99) mg/dL Lactic Ac Sepsis Rflx Plasma Lactic Acid Andry (0.7-2.0) mmol/L Calcium 9.7 (8.4-10.2) mg/dL Total Bilirubin 0.5 (0.2-1.3) mg/dL AST 25 (17-59) U/L ALT 24 (4-49) U/L Alkaline Phosphatase 68 (38-126) U/L Total Protein 6.2 L (6.3-8.2) g/dL Albumin 3.6 (3.5-5.0) g/dL Amylase 45 (30-110) U/L Lipase 37 (23-300) U/L Urine Color Urine Appearance (Clear) Urine pH (5.0-8.0) Ur Specific [place] (1.001-1.035) Urine Protein (Negative) Urine Glucose (UA) (Negative) Urine Ketones (Negative) Urine Blood (Negative) Urine Nitrite (Negative) Urine Bilirubin (Negative) Urine Urobilinogen (<2.0) mg/dL Ur Leukocyte Esterase (Negative) Urine RBC (0-5) /hpf Urine WBC (0-5) /hpf Ur Squamous Epith Cells (0-4) /hpf Urine Bacteria (None) /hpf Hyaline Casts (0-2) /lpf Urine Mucus (None) /hpf Influenza Type A (PCR) (Not Detectd) Influenza Type B (PCR) (Not Detectd) RSV (PCR) (Not Detectd) SARS-CoV-2 (PCR) (Not Detectd) 06/17/24 06/17/24 06/17/24 Range/Units 10:29 10:30 10:49 WBC (3.8-10.6) k/uL RBC (4.30-5.90) m/uL Hgb (13.0-17.5) gm/dL Hct (39.0-53.0) % MCV (80.0-100.0) fL MCH (25.0-35.0) pg MCHC (31.0-37.0) g/dL RDW (11.5-15.5) % Plt Count (150-450) k/uL MPV Neutrophils % % Lymphocytes % % Monocytes % % Eosinophils % % Basophils % % Neutrophils # (1.3-7.7) k/uL Lymphocytes # (1.0-4.8) k/uL Monocytes # (0-1.0) k/uL Eosinophils # (0-0.7) k/uL Basophils # (0-0.2) k/uL PT (10.0-12.5) sec INR (<1.2) APTT (22.0-30.0) sec Sodium (137-145) mmol/L Potassium (3.5-5.1) mmol/L Chloride (98-107) mmol/L Carbon Dioxide (22-30) mmol/L Anion Gap mmol/L BUN (9-20) mg/dL Creatinine (0.66-1.25) mg/dL Est GFR (CKD-EPI)AfAm (>60 ml/min/1.73 sqM) Est GFR (CKD-EPI)NonAf (>60 ml/min/1.73 sqM) Glucose (74-99) mg/dL Lactic Ac Sepsis Rflx Plasma Lactic Acid Andry 3.6 H* (0.7-2.0) mmol/L Calcium (8.4-10.2) mg/dL Total Bilirubin (0.2-1.3) mg/dL AST (17-59) U/L ALT (4-49) U/L Alkaline Phosphatase (38-126) U/L Total Protein (6.3-8.2) g/dL Albumin (3.5-5.0) g/dL Amylase (30-110) U/L Lipase (23-300) U/L Urine Color Light Yellow Urine Appearance Clear (Clear) Urine pH 5.5 (5.0-8.0) Ur Specific [place] 1.025 (1.001-1.035) Urine Protein Trace H (Negative) Urine Glucose (UA) 3+ H (Negative) Urine Ketones 1+ H (Negative) Urine Blood Trace H (Negative) Urine Nitrite Negative (Negative) Urine Bilirubin Negative (Negative) Urine Urobilinogen <2.0 (<2.0) mg/dL Ur Leukocyte Esterase Negative (Negative) Urine RBC 2 (0-5) /hpf Urine WBC 3 (0-5) /hpf Ur Squamous Epith Cells <1 (0-4) /hpf Urine Bacteria Rare H (None) /hpf Hyaline Casts 4 H (0-2) /lpf Urine Mucus Rare H (None) /hpf Influenza Type A (PCR) Not Detected (Not Detectd) Influenza Type B (PCR) Not Detected (Not Detectd) RSV (PCR) Not Detected (Not Detectd) SARS-CoV-2 (PCR) Not Detected (Not Detectd) 06/17/24 Range/Units 12:29 WBC (3.8-10.6) k/uL RBC (4.30-5.90) m/uL Hgb (13.0-17.5) gm/dL Hct (39.0-53.0) % MCV (80.0-100.0) fL MCH (25.0-35.0) pg MCHC (31.0-37.0) g/dL RDW (11.5-15.5) % Plt Count (150-450) k/uL MPV Neutrophils % % Lymphocytes % % Monocytes % % Eosinophils % % Basophils % % Neutrophils # (1.3-7.7) k/uL Lymphocytes # (1.0-4.8) k/uL Monocytes # (0-1.0) k/uL Eosinophils # (0-0.7) k/uL Basophils # (0-0.2) k/uL PT (10.0-12.5) sec INR (<1.2) APTT (22.0-30.0) sec Sodium (137-145) mmol/L Potassium (3.5-5.1) mmol/L Chloride (98-107) mmol/L Carbon Dioxide (22-30) mmol/L Anion Gap mmol/L BUN (9-20) mg/dL Creatinine (0.66-1.25) mg/dL Est GFR (CKD-EPI)AfAm (>60 ml/min/1.73 sqM) Est GFR (CKD-EPI)NonAf (>60 ml/min/1.73 sqM) Glucose (74-99) mg/dL Lactic Ac Sepsis Rflx Y Plasma Lactic Acid Andry (0.7-2.0) mmol/L Calcium (8.4-10.2) mg/dL Total Bilirubin (0.2-1.3) mg/dL AST (17-59) U/L ALT (4-49) U/L Alkaline Phosphatase (38-126) U/L Total Protein (6.3-8.2) g/dL Albumin (3.5-5.0) g/dL Amylase (30-110) U/L Lipase (23-300) U/L Urine Color Urine Appearance (Clear) Urine pH (5.0-8.0) Ur Specific [place] (1.001-1.035) Urine Protein (Negative) Urine Glucose (UA) (Negative) Urine Ketones (Negative) Urine Blood (Negative) Urine Nitrite (Negative) Urine Bilirubin (Negative) Urine Urobilinogen (<2.0) mg/dL Ur Leukocyte Esterase (Negative) Urine RBC (0-5) /hpf Urine WBC (0-5) /hpf Ur Squamous Epith Cells (0-4) /hpf Urine Bacteria (None) /hpf Hyaline Casts (0-2) /lpf Urine Mucus (None) /hpf Influenza Type A (PCR) (Not Detectd) Influenza Type B (PCR) (Not Detectd) RSV (PCR) (Not Detectd) SARS-CoV-2 (PCR) (Not Detectd) - EKG Data -: EKG Interpreted by Me EKG Comments: 12-lead Electrocardiogram Interpretation Note EKG was reviewed and interpreted by myself. 12-lead ECG performed at 1036 is interpreted by me as revealing normal sinus rhythm at a rate of 87 beats per minute. [place] is normal. GA interval is 116 ms, QRS duration is 89 ms, QTc is 4 10 ms. PAC is present.. There were no ST or T wave abnormalities to suggest myocardial ischemia or injury. R wave progression across the precordium was satisfactory. By my interpretation this EKG is non-diagnostic for acute ischemia. Disposition Clinical Impression: Tremor, Cellulitis Disposition: HOME SELF-CARE Condition: Good Instructions (If sedation given, give patient instructions): Cellulitis (ED) Prescriptions: clindamycin HCL 300 mg PO Q8HR 5 Days #15 cap Is patient prescribed a controlled substance at d/c from ED?: No Referrals: Lloyd Romano MD [Primary Care Provider] - 1-2 days Time of Disposition: 13:15
[2024-06-17] MEDS: CLINDAMYCIN 150 MG CAP PO STA (13:39)
[2024-06-17 13:46] VITALS: BP 136/73; PULSE 82; RESP 16
== END 2024-06-17 13:46 | disposition home or self-care (01) ==
LOC: EC 09:41
CPT/HCPCS: 36415; 74177; 80053; 81001; 82150; 83605; 83690; 85025; 85610; 85730; 87636; 93005; 96360; 96361; 99284